=== PATIENT | male | born 1970 | race Two or more races ===

== ENCOUNTER 2021-05-27 22:39 | Emergency (ER) | payer OTHER ==
[~2021-05-27] VITALS: Ht 175.3 cm; Wt 90.9 kg
[2021-05-27 22:43] VITALS: BP 144/78
== END 2021-05-27 23:32 | disposition home or self-care (01) ==
LOC: ER 22:40
DX: F41.9 Anxiety disorder, unspecified (principal); R20.2 Paresthesia of skin
CPT/HCPCS: 93005; 99283

== ENCOUNTER 2021-07-18 20:27 | Emergency (ER) | payer BC ==
[~2021-07-18] VITALS: Ht 175.3 cm; Wt 90.9 kg
--- NOTE | 2021-07-18 20:51 | NUR ---
SPOKE TO DR YAN CONCERNING PT'S SYMPTOMS AND THEIR TIMING. HE WILL ASSESS PT PRIOR TO ORDERING HEAD CT.
[2021-07-18 20:59] LABS: BASOPHILS # (AUTO) 0.1 X10'3 (0-0.2); BASOPHILS % (AUTO) 0.8 % (0-1); EOSINOPHILS # (AUTO) 0.3 X10'3 (0-0.9); EOSINOPHILS % (AUTO) 3.6 % (0-6); HEMATOCRIT 45.2 % (42.0-52.0); HEMOGLOBIN 15.6 g/dl (14.0-17.9); LYMPHOCYTES # (AUTO) 2.2 X10'3 (1.1-4.8); LYMPHOCYTES % (AUTO) 28.2 % (21-51); MEAN CORPUSCULAR HEMOGLOBIN 30.4 PG (27.0-31.0); MEAN CORPUSCULAR HGB CONC 34.5 g/dL (33.0-36.5); MONOCYTES # (AUTO) 0.6 X10'3 (0-0.9); MONOCYTES % (AUTO) 7.9 % (2-12); NEUTROPHILS # (AUTO) 4.7 X10'3 (1.8-7.7); NEUTROPHILS % (AUTO) 59.5 % (42-75); PLATELET COUNT 295 X10'3 (140-440); RED BLOOD COUNT 5.14 X10'6 (4.70-6.10); RED CELL DISTRIBUTION WIDTH 13.5 % (11.5-14.5); WHITE BLOOD COUNT 7.8 X10'3 (4.5-11.0)
[2021-07-18 21:04] LABS: ALANINE AMINOTRANSFERASE 36 U/L (12-78); ALBUMIN/GLOBULIN RATIO 1.1 (1.1-1.5); ALKALINE PHOSPHATASE 74 IU/L (46-116); ANION GAP 7 (8-16); ASPARTATE AMINO TRANSFERASE 18 U/L (10-37); BILIRUBIN,TOTAL 0.6 MG/DL (0.1-1.0); BLOOD UREA NITROGEN 22 MG/DL (7-18); CALCIUM 8.9 MG/DL (8.5-10.1); CHLORIDE 105 MMOL/L (99-107); GLUCOSE 110 MG/DL (70-104); POTASSIUM 3.7 MMOL/L (3.5-5.1); SODIUM 139 MMOL/L (135-145); TOTAL CARBON DIOXIDE 27.3 MMOL/L (24-32); TOTAL PROTEIN 7.8 G/DL (6.4-8.2); eGFR 79 ML/MIN
[2021-07-18 23:42] VITALS: BP 125/86
== END 2021-07-19 00:05 | disposition home or self-care (01) ==
LOC: ER 20:27
DX: E87.8 Other disorders of electrolyte and fluid balance, not elsewhere classified (principal); R20.2 Paresthesia of skin; R07.89 Other chest pain; F41.9 Anxiety disorder, unspecified; F17.200 Nicotine dependence, unspecified, uncomplicated
CPT/HCPCS: 36415; 71045; 80053; 83880; 84443; 84484; 85025; 93005; 99285

== ENCOUNTER 2021-07-31 22:00 | Emergency (ER) | payer BC | END 2021-07-31 22:52 | disposition left against medical advice (07) | LOC: ER 22:00 | DX: J11.1 Influenza due to unidentified influenza virus with other respiratory manifestations (principal); Z53.21 Procedure and treatment not carried out due to patient leaving prior to being seen by health care provider ==

== ENCOUNTER 2021-09-06 20:52 | Emergency (ER) | payer BC ==
[~2021-09-06] VITALS: Ht 175.3 cm; Wt 84.1 kg
[2021-09-06 21:07] VITALS: BP 109/74
--- NOTE | 2021-09-07 02:00 | NUR ---
SECOND CALL, NOT IN LOBBY
== END 2021-09-07 02:29 | disposition left against medical advice (07) ==
LOC: ER 20:53
DX: R42 Dizziness and giddiness (principal); Z53.21 Procedure and treatment not carried out due to patient leaving prior to being seen by health care provider
CPT/HCPCS: 93005

== ENCOUNTER 2021-10-11 11:13 | Emergency (ER) | payer BC ==
[~2021-10-11] VITALS: Ht 175.3 cm; Wt 81.8 kg
[2021-10-11 11:20] VITALS: BP 114/58
== END 2021-10-11 12:41 | disposition home or self-care (01) ==
LOC: ER 11:14
DX: R51.9 Headache, unspecified (principal)
CPT/HCPCS: 99281

== ENCOUNTER 2022-03-23 23:47 | Emergency (ER) | payer BC ==
[~2022-03-23] VITALS: Ht 175.3 cm; Wt 81.5 kg
[2022-03-24 00:08] LABS: BASOPHILS # (AUTO) 0.1 X10'3 (0-0.2); EOSINOPHILS # (AUTO) 0.3 X10'3 (0-0.9); EOSINOPHILS % (AUTO) 5.3 % (0-6); HEMATOCRIT 42.9 % (42.0-52.0); LYMPHOCYTES # (AUTO) 1.9 X10'3 (1.1-4.8); LYMPHOCYTES % (AUTO) 31.3 % (21-51); MEAN CORPUSCULAR HEMOGLOBIN 31.1 PG (27.0-31.0); MEAN CORPUSCULAR HGB CONC 34.9 g/dL (33.0-36.5); MEAN PLATELET VOLUME 8.6 FL (7.4-10.4); MONOCYTES # (AUTO) 0.5 X10'3 (0-0.9); MONOCYTES % (AUTO) 8.5 % (2-12); NEUTROPHILS # (AUTO) 3.2 X10'3 (1.8-7.7); NEUTROPHILS % (AUTO) 53.9 % (42-75); PLATELET COUNT 271 X10'3 (140-440); RED BLOOD COUNT 4.82 X10'6 (4.70-6.10); RED CELL DISTRIBUTION WIDTH 13.8 % (11.5-14.5); WHITE BLOOD COUNT 5.9 X10'3 (4.5-11.0)
[2022-03-24 00:26] LABS: ALANINE AMINOTRANSFERASE 34 U/L (12-78); ALBUMIN 3.9 G/DL (3.4-5.0); ALBUMIN/GLOBULIN RATIO 1.1 (1.1-1.5); ALKALINE PHOSPHATASE 69 IU/L (46-116); ANION GAP 10 (8-16); ASPARTATE AMINO TRANSFERASE 18 U/L (10-37); BILIRUBIN,TOTAL 0.4 MG/DL (0.1-1.0); BLOOD UREA NITROGEN 20 MG/DL (7-18); BUN/CREATININE RATIO 18.2 (5.4-32.0); CALCIUM 8.9 MG/DL (8.5-10.1); CHLORIDE 104 MMOL/L (99-107); GLUCOSE 117 MG/DL (70-104); MAGNESIUM 2.1 MG/DL (1.5-2.4); POTASSIUM 3.6 MMOL/L (3.5-5.1); SODIUM 138 MMOL/L (135-145); TOTAL CARBON DIOXIDE 24.3 MMOL/L (24-32); TOTAL PROTEIN 7.4 G/DL (6.4-8.2); eGFR 70 ML/MIN
[2022-03-24 02:11] VITALS: BP 124/67
== END 2022-03-24 02:12 | disposition home or self-care (01) ==
LOC: ER 23:47
DX: R07.9 Chest pain, unspecified (principal); F41.9 Anxiety disorder, unspecified; F17.200 Nicotine dependence, unspecified, uncomplicated; G47.30 Sleep apnea, unspecified; Z88.0 Allergy status to penicillin
CPT/HCPCS: 36415; 71045; 80053; 83735; 83880; 84484; 85025; 93005; 99285

== ENCOUNTER 2022-03-27 18:21 | Emergency (ER) | payer BC ==
[~2022-03-27] VITALS: Ht 175.3 cm; Wt 87.2 kg
[2022-03-27 19:10] LABS: BASOPHILS # (AUTO) 0.1 X10'3 (0-0.2); BASOPHILS % (AUTO) 1.2 % (0-1); EOSINOPHILS # (AUTO) 0.2 X10'3 (0-0.9); EOSINOPHILS % (AUTO) 3.4 % (0-6); HEMATOCRIT 43.8 % (42.0-52.0); LYMPHOCYTES # (AUTO) 0.8 X10'3 (1.1-4.8); LYMPHOCYTES % (AUTO) 13.8 % (21-51); MEAN CORPUSCULAR HEMOGLOBIN 30.5 PG (27.0-31.0); MEAN CORPUSCULAR HGB CONC 34.1 g/dL (33.0-36.5); MEAN CORPUSCULAR VOLUME 89.5 FL (78-98); MEAN PLATELET VOLUME 8.7 FL (7.4-10.4); MONOCYTES # (AUTO) 0.6 X10'3 (0-0.9); MONOCYTES % (AUTO) 9.7 % (2-12); NEUTROPHILS # (AUTO) 4.2 X10'3 (1.8-7.7); NEUTROPHILS % (AUTO) 71.9 % (42-75); PLATELET COUNT 255 X10'3 (140-440); RED CELL DISTRIBUTION WIDTH 13.4 % (11.5-14.5); WHITE BLOOD COUNT 5.9 X10'3 (4.5-11.0)
[2022-03-27 19:22] LABS: ALANINE AMINOTRANSFERASE 27 U/L (12-78); ALBUMIN 3.9 G/DL (3.4-5.0); ALBUMIN/GLOBULIN RATIO 1.1 (1.1-1.5); ALKALINE PHOSPHATASE 72 IU/L (46-116); ANION GAP 9 (8-16); ASPARTATE AMINO TRANSFERASE 18 U/L (10-37); BILIRUBIN,TOTAL 0.3 MG/DL (0.1-1.0); BLOOD UREA NITROGEN 23 MG/DL (7-18); BUN/CREATININE RATIO 22.1 (5.4-32.0); CALCIUM 9.1 MG/DL (8.5-10.1); CHLORIDE 103 MMOL/L (99-107); CREATININE 1.04 MG/DL (0.60-1.10); GLUCOSE 107 MG/DL (70-104); POTASSIUM 3.9 MMOL/L (3.5-5.1); SODIUM 138 MMOL/L (135-145); TOTAL PROTEIN 7.5 G/DL (6.4-8.2); eGFR 75 ML/MIN
[2022-03-28 01:43] VITALS: BP 143/76
== END 2022-03-28 01:47 | disposition home or self-care (01) ==
LOC: ER 18:22
DX: R05.9 Cough, unspecified (principal); R09.81 Nasal congestion; M54.59 Other low back pain; R06.02 Shortness of breath; F41.9 Anxiety disorder, unspecified; Z88.0 Allergy status to penicillin
CPT/HCPCS: 36415; 80053; 83735; 83880; 84484; 85025; 93005; 99284

== ENCOUNTER 2022-08-20 09:02 | Emergency (ER) | payer BC, MEDICAID ==
[~2022-08-20] VITALS: Ht 175.3 cm; Wt 84.1 kg
[2022-08-20 09:08] VITALS: BP 127/83
[2022-08-20 09:31] LABS: BASOPHILS # (AUTO) 0.1 X10'3 (0-0.2); BASOPHILS % (AUTO) 1.1 % (0-1); EOSINOPHILS # (AUTO) 0.2 X10'3 (0-0.9); EOSINOPHILS % (AUTO) 2.8 % (0-6); HEMATOCRIT 46.6 % (42.0-52.0); LYMPHOCYTES # (AUTO) 1.8 X10'3 (1.1-4.8); LYMPHOCYTES % (AUTO) 25.4 % (21-51); MEAN CORPUSCULAR HEMOGLOBIN 30.6 PG (27.0-31.0); MEAN CORPUSCULAR HGB CONC 34.3 g/dL (33.0-36.5); MEAN PLATELET VOLUME 8.6 FL (7.4-10.4); MONOCYTES # (AUTO) 0.5 X10'3 (0-0.9); MONOCYTES % (AUTO) 6.5 % (2-12); NEUTROPHILS # (AUTO) 4.5 X10'3 (1.8-7.7); NEUTROPHILS % (AUTO) 64.2 % (42-75); PLATELET COUNT 299 X10'3 (140-440); RED BLOOD COUNT 5.24 X10'6 (4.70-6.10); RED CELL DISTRIBUTION WIDTH 13.1 % (11.5-14.5)
[2022-08-20 09:44] LABS: ALANINE AMINOTRANSFERASE 37 U/L (12-78); ALBUMIN 4.1 G/DL (3.4-5.0); ALBUMIN/GLOBULIN RATIO 1.1 (1.1-1.5); ALKALINE PHOSPHATASE 77 IU/L (46-116); ANION GAP 2 (8-16); ASPARTATE AMINO TRANSFERASE 20 U/L (10-37); BILIRUBIN,TOTAL 0.4 MG/DL (0.1-1.0); BLOOD UREA NITROGEN 28 MG/DL (7-18); BUN/CREATININE RATIO 32.9 (10.0-20.0); CALCIUM 9.2 MG/DL (8.5-10.1); CHLORIDE 105 MMOL/L (99-107); CREATININE 0.85 MG/DL (0.60-1.10); GLUCOSE 109 MG/DL (70-104); POTASSIUM 3.7 MMOL/L (3.5-5.1); SODIUM 137 MMOL/L (135-145); TOTAL CARBON DIOXIDE 29.9 MMOL/L (24-32); TOTAL PROTEIN 7.8 G/DL (6.4-8.2); eGFR > 90 ML/MIN
[2022-08-20] MEDS ORDERED: LANS30CA37 PO (12:51)
== END 2022-08-20 13:00 | disposition home or self-care (01) ==
LOC: ER 09:02
DX: K29.70 Gastritis, unspecified, without bleeding (principal); E78.00 Pure hypercholesterolemia, unspecified; I10 Essential (primary) hypertension; I25.2 Old myocardial infarction; E11.9 Type 2 diabetes mellitus without complications; F41.9 Anxiety disorder, unspecified; F17.200 Nicotine dependence, unspecified, uncomplicated; Z88.0 Allergy status to penicillin; Z79.899 Other long term (current) drug therapy
CPT/HCPCS: 36415; 71045; 80053; 83880; 84484; 85025; 93005; 99285

== ENCOUNTER 2022-10-21 18:52 | Emergency (ER) | payer MEDICAID ==
[~2022-10-21] VITALS: Ht 175.3 cm; Wt 85.5 kg
[~2022-10-21 18:52] MED LIST: LANS30CA37 PO
[2022-10-21 19:12] VITALS: BP 138/84; PULSE 94; TEMP 98.8; O2SAT 96
[2022-10-21 19:22] LABS: BASOPHILS # (AUTO) 0.1 X10'3 (0-0.2); BASOPHILS % (AUTO) 0.8 % (0-1); EOSINOPHILS # (AUTO) 0.2 X10'3 (0-0.9); EOSINOPHILS % (AUTO) 2.1 % (0-6); HEMATOCRIT 43.8 % (42.0-52.0); HEMOGLOBIN 15.5 g/dl (14.0-17.9); LYMPHOCYTES # (AUTO) 1.7 X10'3 (1.1-4.8); LYMPHOCYTES % (AUTO) 18.9 % (21-51); MEAN CORPUSCULAR HEMOGLOBIN 31.7 PG (27.0-31.0); MEAN CORPUSCULAR HGB CONC 35.4 g/dL (33.0-36.5); MEAN CORPUSCULAR VOLUME 89.5 FL (78-98); MONOCYTES # (AUTO) 0.6 X10'3 (0-0.9); MONOCYTES % (AUTO) 6.2 % (2-12); NEUTROPHILS # (AUTO) 6.5 X10'3 (1.8-7.7); PLATELET COUNT 284 X10'3 (140-440); RED CELL DISTRIBUTION WIDTH 13.3 % (11.5-14.5)
[2022-10-21 19:41] LABS: ALANINE AMINOTRANSFERASE 33 U/L (12-78); ALBUMIN 3.9 G/DL (3.4-5.0); ALBUMIN/GLOBULIN RATIO 1.1 (1.1-1.5); ALKALINE PHOSPHATASE 81 IU/L (46-116); ANION GAP 11 (8-16); ASPARTATE AMINO TRANSFERASE 18 U/L (10-37); BILIRUBIN,TOTAL 0.3 MG/DL (0.1-1.0); BLOOD UREA NITROGEN 22 MG/DL (7-18); BUN/CREATININE RATIO 24.4 (10.0-20.0); CALCIUM 9.1 MG/DL (8.5-10.1); CHLORIDE 104 MMOL/L (99-107); GLUCOSE 114 MG/DL (70-104); POTASSIUM 3.7 MMOL/L (3.5-5.1); SODIUM 140 MMOL/L (135-145); TOTAL CARBON DIOXIDE 25.5 MMOL/L (24-32); TOTAL PROTEIN 7.4 G/DL (6.4-8.2); eGFR 88 ML/MIN
[2022-10-22 02:51] VITALS: RESP 18
[2022-10-22] MEDS ORDERED: LANS30CA37 PO ×2 (03:16→03:17)
== END 2022-10-22 03:29 | disposition home or self-care (01) ==
LOC: ER 18:53
DX: R07.89 Other chest pain (principal); M54.9 Dorsalgia, unspecified; E78.00 Pure hypercholesterolemia, unspecified; I10 Essential (primary) hypertension; I25.2 Old myocardial infarction; E11.9 Type 2 diabetes mellitus without complications; Z88.0 Allergy status to penicillin; Z79.899 Other long term (current) drug therapy; Z87.19 Personal history of other diseases of the digestive system
CPT/HCPCS: 36415; 71045; 80053; 83880; 84484; 85025; 93005; 99285

== ENCOUNTER 2023-01-22 19:10 | Inpatient (IN) | payer MEDICAID ==
[~2023-01-22] VITALS: Ht 175.3 cm; Wt 83.0 kg
[2023-01-22 19:30] VITALS: TEMP 98.1
[2023-01-22 20:11] LABS: BASOPHILS # (AUTO) 0.1 X10'3 (0-0.2); EOSINOPHILS # (AUTO) 0.2 X10'3 (0-0.9); EOSINOPHILS % (AUTO) 3.1 % (0-6); HEMATOCRIT 44.2 % (42.0-52.0); HEMOGLOBIN 15.4 g/dl (14.0-17.9); LYMPHOCYTES # (AUTO) 1.9 X10'3 (1.1-4.8); LYMPHOCYTES % (AUTO) 24.3 % (21-51); MEAN CORPUSCULAR HEMOGLOBIN 31.3 PG (27.0-31.0); MEAN CORPUSCULAR HGB CONC 34.9 g/dL (33.0-36.5); MEAN CORPUSCULAR VOLUME 89.5 FL (78-98); MEAN PLATELET VOLUME 9.3 FL (7.4-10.4); MONOCYTES # (AUTO) 0.6 X10'3 (0-0.9); MONOCYTES % (AUTO) 8.1 % (2-12); NEUTROPHILS # (AUTO) 4.9 X10'3 (1.8-7.7); NEUTROPHILS % (AUTO) 63.5 % (42-75); PLATELET COUNT 279 X10'3 (140-440); RED BLOOD COUNT 4.94 X10'6 (4.70-6.10); RED CELL DISTRIBUTION WIDTH 12.9 % (11.5-14.5); WHITE BLOOD COUNT 7.7 X10'3 (4.5-11.0)
[2023-01-22 20:12] LABS: ALANINE AMINOTRANSFERASE 26 U/L (12-78); ALBUMIN/GLOBULIN RATIO 1.3 (1.1-1.5); ALKALINE PHOSPHATASE 77 IU/L (46-116); ANION GAP 7 (8-16); ASPARTATE AMINO TRANSFERASE 17 U/L (10-37); BILIRUBIN,TOTAL 0.3 MG/DL (0.1-1.0); BLOOD UREA NITROGEN 18 MG/DL (7-18); BUN/CREATININE RATIO 20.9 (10.0-20.0); CALCIUM 9.5 MG/DL (8.5-10.1); CHLORIDE 102 MMOL/L (99-107); CREATININE 0.86 MG/DL (0.60-1.10); GLUCOSE 109 MG/DL (70-104); POTASSIUM 3.8 MMOL/L (3.5-5.1); SODIUM 137 MMOL/L (135-145); TOTAL CARBON DIOXIDE 28.3 MMOL/L (24-32); TOTAL PROTEIN 7.1 G/DL (6.4-8.2); eCRCL 99 ML/MIN; eGFR > 90 ML/MIN
[2023-01-23] VITALS (11 sets, daily range): BP systolic 106–121; BP diastolic 60–72; PULSE 75–123; RESP 14–22; O2SAT 96–98
[2023-01-23] MEDS ORDERED: nitroGLYCERIN 1gm ointment UD TP ONE (00:55)
[2023-01-23] MEDS ORDERED: aspirin 325mg tablet, delayed-release (Ecotrin) PO ONE (00:55)
[2023-01-23 01:25] LABS: D-DIMER < 0.19 MG/L FEU (0-0.50)
[2023-01-23] MEDS ORDERED: acetaminophen 325mg tablet PO PRN ×2 (02:15)
[2023-01-23] MEDS ORDERED: magnesium 2GM in 50ml NS 50 ML IV PRN (02:15)
[2023-01-23] MEDS ORDERED: magnesium Cl slow-release 64mg tablet PO PRN (02:15)
[2023-01-23] MEDS ORDERED: potassium Cl 40MEQ/1/2NS 520ml 520 ML IV PRN (02:15)
[2023-01-23] MEDS ORDERED: potassium Cl 20 mEq SR tablet PO PRN ×2 (02:15)
[2023-01-23] MEDS ORDERED: magnesium hydroxide 30ml (MOM) UD suspension PO PRN (02:15)
[2023-01-23] MEDS ORDERED: HYDROcodone/acetaminophen 10/325mg tab PO PRN (02:15)
[2023-01-23] MEDS ORDERED: ondansetron/PF 4mg/2ml inj IV PRN (02:15)
[2023-01-23] MEDS ORDERED: mag hydrox/Alum hydrox/simeth 30ml oral suspension PO PRN (02:15)
[2023-01-23] MEDS ORDERED: magnesium 4gm in 100ml NS 100 ML IV PRN (02:15)
[2023-01-23] MEDS ORDERED: morphine 2 MG/ML inj. syringe IV PRN ×2 (02:15)
[2023-01-23] MEDS ORDERED: HYDROcodone/acetaminophen 5mg/325mg tablet PO PRN (02:15)
[2023-01-23 02:58] LABS: URINE AMPHETAMINE SCREEN NEGATIVE (Neg); URINE BARBITUATE SCREEN NEGATIVE (Neg); URINE BENZODIAZEPINES SCREEN POSITIVE (Neg); URINE CANNABINOID SCREEN NEGATIVE (Neg); URINE COCAINE SCREEN NEGATIVE (Neg); URINE METHADONE SCREEN NEGATIVE (Neg); URINE OPIATE SCREEN NEGATIVE (Neg); URINE PHENCYCLIDINE SCREEN NEGATIVE (Neg)
[2023-01-23] MEDS: normal saline 1000ml 1,000 ML IV SCH ×2 (03:10→13:26)
[2023-01-23] MEDS ORDERED: ALPR-624 PO (06:39)
[2023-01-23] MEDS ORDERED: SERT100T PO (06:39)
[2023-01-23] MEDS ORDERED: GEMF600T89 PO (06:39)
--- NOTE | 2023-01-23 07:00 | NUR ---
ASSUMED PT CARE. PT AWAKE AND RESTING IN NO APPARENT DISTRESS. NITRO PATCH DISCONTINUED, PT HAS A STRESS TEST THIS MORNING.
[2023-01-23] MEDS ORDERED: docusate sod 100mg capsule PO SCH (08:00)
[2023-01-23] MEDS ORDERED: enoxaparin 40mg/0.4ml syringe SUBCUT SCH (08:00)
--- NOTE | 2023-01-23 08:44 | NUR ---
ECHO AT BEDSIDE
[2023-01-23] MEDS ORDERED: regadenoson 0.4mg/5ml syringe IV ONE (10:25)
[2023-01-23] MEDS ORDERED: aminophylline 250mg/10ml inj. IV PRN (10:25)
[2023-01-23 10:41] LABS: HEMOGLOBIN A1C 5.7 % (4.5-6.2)
[2023-01-23 10:46] LABS: CHOLESTEROL 169 MG/DL (0-200); HDL CHOLESTEROL 34 MG/DL (35-60); LDL CHOLESTEROL 101 MG/DL (50-100); THYROID STIMULATING HORMONE 1.59 ulU/ml (0.34-4.50); TRIGLYCERIDES 138 MG/DL (20-135)
[2023-01-23] MEDS ORDERED: NICO-687 TOP (12:31)
--- NOTE | 2023-01-23 13:26 | NUR ---
pt back from stress test. pt tolerated well.
[2023-01-23] MEDS ORDERED: temazepam 15mg capsule PO PRN (21:00)
== END 2023-01-23 14:51 | disposition home or self-care (01) | DRG 243 ==
LOC: ER 19:11 → OBSVTOIN 01-23 02:13 → ED HOLD 01-23 02:13
PROVIDERS: ADMIT Internal Medicine; ATTEND Family Medicine
PROC: 4A02XM4 Measurement of Cardiac Total Activity, External Approach (ICD-10-PCS; principal; 2023-01-23)
PROC: 3E033HZ Introduction of Radioactive Substance into Peripheral Vein, Percutaneous Approach (ICD-10-PCS; 2023-01-23)
DX: K21.9 Gastro-esophageal reflux disease without esophagitis (principal); E78.00 Pure hypercholesterolemia, unspecified; F32.A Depression, unspecified; F41.9 Anxiety disorder, unspecified; I10 Essential (primary) hypertension; Z63.4 Disappearance and death of family member; Z88.0 Allergy status to penicillin; Z72.0 Tobacco use; Z71.6 Tobacco abuse counseling
CPT/HCPCS: 36415; 71045; 78452; 80053; 80061; 80305; 83036; 83880; 84443; 84484; 85025; 85379; 93017; 93306; 99285; A9500; G0378; J1650; J2785; J7030

== ENCOUNTER 2023-09-03 20:40 | Emergency (ER) | payer MEDICAID, SELFPAY ==
[~2023-09-03] VITALS: Ht 175.3 cm; Wt 80.0 kg
[~2023-09-03 20:40] MED LIST changes: +ALPR-624 PO; +GEMF600T89 PO; -LANS30CA37 PO; +SERT100T PO
[2023-09-03 20:48] VITALS: TEMP 98.7
[2023-09-03 21:05] LABS: BASOPHILS % (AUTO) 0.5 % (0-1); EOSINOPHILS # (AUTO) 0.2 X10'3 (0-0.9); EOSINOPHILS % (AUTO) 3.2 % (0-6); HEMATOCRIT 46.2 % (42.0-52.0); LYMPHOCYTES % (AUTO) 27.5 % (21-51); MEAN CORPUSCULAR HEMOGLOBIN 31.2 PG (27.0-31.0); MEAN CORPUSCULAR HGB CONC 34.6 g/dL (33.0-36.5); MEAN CORPUSCULAR VOLUME 90.2 FL (78-98); MEAN PLATELET VOLUME 8.8 FL (7.4-10.4); MONOCYTES # (AUTO) 0.5 X10'3 (0-0.9); NEUTROPHILS # (AUTO) 4.4 X10'3 (1.8-7.7); NEUTROPHILS % (AUTO) 61.8 % (42-75); PLATELET COUNT 271 X10'3 (140-440); RED BLOOD COUNT 5.13 X10'6 (4.70-6.10); RED CELL DISTRIBUTION WIDTH 14.4 % (11.5-14.5); WHITE BLOOD COUNT 7.1 X10'3 (4.5-11.0)
[2023-09-03 21:13] LABS: ALANINE AMINOTRANSFERASE 22 U/L (12-78); ALBUMIN 3.5 G/DL (3.4-5.0); ALBUMIN/GLOBULIN RATIO 0.9 (1.1-1.5); ALKALINE PHOSPHATASE 65 IU/L (46-116); ANION GAP 8 (8-16); ASPARTATE AMINO TRANSFERASE 11 U/L (10-37); BILIRUBIN,TOTAL 0.4 MG/DL (0.1-1.0); BLOOD UREA NITROGEN 19 MG/DL (7-18); BUN/CREATININE RATIO 20.2 (10.0-20.0); CALCIUM 9.3 MG/DL (8.5-10.1); CHLORIDE 104 MMOL/L (99-107); CREATININE 0.94 MG/DL (0.60-1.10); GLUCOSE 100 MG/DL (70-104); POTASSIUM 3.8 MMOL/L (3.5-5.1); SODIUM 141 MMOL/L (135-145); TOTAL CARBON DIOXIDE 28.6 MMOL/L (24-32); TOTAL PROTEIN 7.5 G/DL (6.4-8.2); eCRCL 91 ML/MIN; eGFR 84 ML/MIN
[2023-09-03 21:23] LABS: FREE T4 (FREE THYROXINE) 0.82 NG/DL (0.73-1.40); PRO BRAIN NATRIURETIC PEPTIDE < 30 PG/ML (0-125); THYROID STIMULATING HORMONE 2.49 ulU/ml (0.34-4.50)
[2023-09-03 22:00] LABS: BILIRUBIN,URINE NEGATIVE (Neg); CLARITY,URINE CLEAR (Clear); COLOR,URINE YELLOW (Yellow); GLUCOSE, URINE NEGATIVE (Neg); KETONES,URINE NEGATIVE (Neg); LEUKOCYTE ESTERASE ,URINE NEGATIVE (Neg); NITRITES, URINE NEGATIVE (Neg); OCCULT BLOOD,URINE NEGATIVE (Neg); PROTEIN,URINE NEGATIVE (Neg); UROBILINOGEN,URINE 0.2 E.U/dL (0.2-1.0)
[2023-09-03 22:05] LABS: UA COLLECTION TYPE NON-SPECIFIED
[2023-09-03 22:11] LABS: URINE AMPHETAMINE SCREEN NEGATIVE (Neg); URINE BARBITUATE SCREEN NEGATIVE (Neg); URINE BENZODIAZEPINES SCREEN POSITIVE (Neg); URINE CANNABINOID SCREEN NEGATIVE (Neg); URINE COCAINE SCREEN NEGATIVE (Neg); URINE METHADONE SCREEN NEGATIVE (Neg); URINE OPIATE SCREEN NEGATIVE (Neg); URINE PHENCYCLIDINE SCREEN NEGATIVE (Neg)
[2023-09-03 22:44] LABS: APTT 26 SECONDS (22-32); INR 0.9 INR; PROTHROMBIN TIME 10.2 SECONDS (9.0-12.0)
[2023-09-03 23:19] VITALS: BP 115/70; PULSE 83; RESP 15; O2SAT 94
== END 2023-09-03 23:20 | disposition home or self-care (01) ==
LOC: ER 20:40
DX: R07.9 Chest pain, unspecified (principal); E78.00 Pure hypercholesterolemia, unspecified; I10 Essential (primary) hypertension; F41.9 Anxiety disorder, unspecified; Z79.899 Other long term (current) drug therapy; Z88.0 Allergy status to penicillin
CPT/HCPCS: 36415; 71045; 80053; 80305; 81003; 83880; 84439; 84443; 84484; 85025; 85610; 85730; 93005; 99285

== ENCOUNTER 2023-10-22 12:06 | Emergency (ER) | payer MEDICAID ==
[~2023-10-22] VITALS: Ht 175.3 cm; Wt 77.3 kg
[2023-10-22 12:19] VITALS: TEMP 98
[2023-10-22 12:34] LABS: BASOPHILS % (AUTO) 0.8 % (0-1); EOSINOPHILS # (AUTO) 0.2 X10'3 (0-0.9); EOSINOPHILS % (AUTO) 2.8 % (0-6); HEMATOCRIT 53.8 % (42.0-52.0); LYMPHOCYTES # (AUTO) 1.3 X10'3 (1.1-4.8); LYMPHOCYTES % (AUTO) 23.7 % (21-51); MEAN CORPUSCULAR HEMOGLOBIN 31.5 PG (27.0-31.0); MEAN CORPUSCULAR HGB CONC 34.5 g/dL (33.0-36.5); MEAN CORPUSCULAR VOLUME 91.5 FL (78-98); MEAN PLATELET VOLUME 8.9 FL (7.4-10.4); MONOCYTES # (AUTO) 0.4 X10'3 (0-0.9); MONOCYTES % (AUTO) 7.1 % (2-12); NEUTROPHILS # (AUTO) 3.6 X10'3 (1.8-7.7); NEUTROPHILS % (AUTO) 65.6 % (42-75); PLATELET COUNT 261 X10'3 (140-440); RED BLOOD COUNT 5.88 X10'6 (4.70-6.10); RED CELL DISTRIBUTION WIDTH 13.8 % (11.5-14.5); WHITE BLOOD COUNT 5.5 X10'3 (4.5-11.0)
[2023-10-22 12:39] LABS: HEMOGLOBIN 18.6 g/dl (14.0-17.9)
[2023-10-22 12:49] LABS: ALANINE AMINOTRANSFERASE 17 U/L (12-78); ALBUMIN 4.1 G/DL (3.4-5.0); ALKALINE PHOSPHATASE 73 IU/L (46-116); ANION GAP 7 (8-16); ASPARTATE AMINO TRANSFERASE 17 U/L (10-37); BILIRUBIN,TOTAL 0.8 MG/DL (0.1-1.0); BLOOD UREA NITROGEN 14 MG/DL (7-18); BUN/CREATININE RATIO 17.3 (10.0-20.0); CALCIUM 9.3 MG/DL (8.5-10.1); CHLORIDE 103 MMOL/L (99-107); CREATININE 0.81 MG/DL (0.60-1.10); GLUCOSE 103 MG/DL (70-104); POTASSIUM 3.9 MMOL/L (3.5-5.1); SODIUM 139 MMOL/L (135-145); TOTAL CARBON DIOXIDE 28.8 MMOL/L (24-32); TOTAL PROTEIN 8.1 G/DL (6.4-8.2); eCRCL 104 ML/MIN; eGFR > 90 ML/MIN
[2023-10-22 12:57] LABS: PRO BRAIN NATRIURETIC PEPTIDE < 30 PG/ML (0-125)
[2023-10-22] MEDS: normal saline 1000ML IV soln IVB ONE (13:42)
[2023-10-22 15:45] LABS: HEMATOCRIT 49.2 % (42.0-52.0); HEMOGLOBIN 16.8 g/dl (14.0-17.9); MEAN CORPUSCULAR HEMOGLOBIN 31.5 PG (27.0-31.0); MEAN CORPUSCULAR HGB CONC 34.1 g/dL (33.0-36.5); MEAN CORPUSCULAR VOLUME 92.2 FL (78-98); PLATELET COUNT 228 X10'3 (140-440); RED BLOOD COUNT 5.34 X10'6 (4.70-6.10); RED CELL DISTRIBUTION WIDTH 13.9 % (11.5-14.5); WHITE BLOOD COUNT 5.9 X10'3 (4.5-11.0)
[2023-10-22 18:18] VITALS: BP 127/85; PULSE 69; RESP 22; O2SAT 98
== END 2023-10-22 18:20 | disposition home or self-care (01) ==
LOC: ER 12:07
DX: D75.1 Secondary polycythemia (principal); E78.00 Pure hypercholesterolemia, unspecified; I10 Essential (primary) hypertension; F41.9 Anxiety disorder, unspecified; F17.200 Nicotine dependence, unspecified, uncomplicated; Z88.0 Allergy status to penicillin; Z79.899 Other long term (current) drug therapy
CPT/HCPCS: 36415; 80053; 82668; 83880; 84484; 85025; 85027; 93005; 99285; J7030

== ENCOUNTER 2023-12-17 08:32 | Emergency (ER) | payer MEDICAID ==
[~2023-12-17] VITALS: Ht 172.7 cm; Wt 77.0 kg
[2023-12-17] MEDS: normal saline 1000ML IV soln IVB ONE (09:56)
[2023-12-17 10:06] LABS: BASOPHILS % (AUTO) 0.6 % (0-1); EOSINOPHILS # (AUTO) 0.1 X10'3 (0-0.9); HEMATOCRIT 47.3 % (42.0-52.0); HEMOGLOBIN 16.2 g/dl (14.0-17.9); LYMPHOCYTES # (AUTO) 1.3 X10'3 (1.1-4.8); LYMPHOCYTES % (AUTO) 18.2 % (21-51); MEAN CORPUSCULAR HEMOGLOBIN 31.5 PG (27.0-31.0); MEAN CORPUSCULAR HGB CONC 34.3 g/dL (33.0-36.5); MEAN CORPUSCULAR VOLUME 91.8 FL (78-98); MEAN PLATELET VOLUME 9.1 FL (7.4-10.4); MONOCYTES # (AUTO) 0.5 X10'3 (0-0.9); MONOCYTES % (AUTO) 6.4 % (2-12); NEUTROPHILS # (AUTO) 5.3 X10'3 (1.8-7.7); NEUTROPHILS % (AUTO) 72.8 % (42-75); PLATELET COUNT 240 X10'3 (140-440); RED BLOOD COUNT 5.15 X10'6 (4.70-6.10); WHITE BLOOD COUNT 7.3 X10'3 (4.5-11.0)
[2023-12-17 10:27] LABS: ALBUMIN 3.7 G/DL (3.4-5.0); ANION GAP 5 (8-16); BLOOD UREA NITROGEN 13 MG/DL (7-18); BUN/CREATININE RATIO 17.3 (10.0-20.0); CALCIUM 9.1 MG/DL (8.5-10.1); CHLORIDE 104 MMOL/L (99-107); CREATININE 0.75 MG/DL (0.60-1.10); GLUCOSE 99 MG/DL (70-104); POTASSIUM 4.2 MMOL/L (3.5-5.1); PRO BRAIN NATRIURETIC PEPTIDE 34 PG/ML (0-125); SODIUM 141 MMOL/L (135-145); TOTAL CARBON DIOXIDE 31.9 MMOL/L (24-32); eCRCL 109 ML/MIN; eGFR > 90 ML/MIN
[2023-12-17 11:53] VITALS: BP 133/68; PULSE 74; RESP 14; O2SAT 98
== END 2023-12-17 11:53 | disposition home or self-care (01) ==
LOC: ER 08:33
DX: F41.9 Anxiety disorder, unspecified (principal); R51.9 Headache, unspecified; E78.00 Pure hypercholesterolemia, unspecified; I10 Essential (primary) hypertension; G47.30 Sleep apnea, unspecified; Z88.0 Allergy status to penicillin; Z79.899 Other long term (current) drug therapy
CPT/HCPCS: 36415; 80048; 83880; 84484; 85025; 93005; 96360; 99284; J7030

== ENCOUNTER 2024-02-09 11:15 | Emergency (ER) | payer MEDICAID ==
[~2024-02-09] VITALS: Ht 172.7 cm; Wt 77.9 kg
[2024-02-09 12:41] LABS: BASOPHILS # (AUTO) 0.1 X10'3 (0-0.2); BASOPHILS % (AUTO) 1.1 % (0-1); EOSINOPHILS # (AUTO) 0.1 X10'3 (0-0.9); EOSINOPHILS % (AUTO) 2.5 % (0-6); HEMATOCRIT 44.1 % (42.0-52.0); HEMOGLOBIN 15.4 g/dl (14.0-17.9); LYMPHOCYTES # (AUTO) 1.4 X10'3 (1.1-4.8); LYMPHOCYTES % (AUTO) 26.9 % (21-51); MEAN CORPUSCULAR HEMOGLOBIN 31.6 PG (27.0-31.0); MEAN CORPUSCULAR HGB CONC 34.9 g/dL (33.0-36.5); MEAN CORPUSCULAR VOLUME 90.7 FL (78-98); MEAN PLATELET VOLUME 8.8 FL (7.4-10.4); MONOCYTES # (AUTO) 0.4 X10'3 (0-0.9); MONOCYTES % (AUTO) 7.4 % (2-12); NEUTROPHILS # (AUTO) 3.3 X10'3 (1.8-7.7); NEUTROPHILS % (AUTO) 62.1 % (42-75); PLATELET COUNT 263 X10'3 (140-440); RED BLOOD COUNT 4.86 X10'6 (4.70-6.10); RED CELL DISTRIBUTION WIDTH 13.4 % (11.5-14.5); WHITE BLOOD COUNT 5.3 X10'3 (4.5-11.0)
[2024-02-09 12:49] LABS: PROTHROMBIN TIME 10.4 SECONDS (9.0-12.0)
[2024-02-09 12:50] LABS: ALANINE AMINOTRANSFERASE 18 U/L (12-78); ALBUMIN 3.8 G/DL (3.4-5.0); ALKALINE PHOSPHATASE 70 IU/L (46-116); ANION GAP 6 (8-16); ASPARTATE AMINO TRANSFERASE 16 U/L (10-37); BILIRUBIN,TOTAL 0.7 MG/DL (0.1-1.0); BLOOD UREA NITROGEN 18 MG/DL (7-18); BUN/CREATININE RATIO 20.7 (10.0-20.0); CALCIUM 9.1 MG/DL (8.5-10.1); CHLORIDE 102 MMOL/L (99-107); CREATININE 0.87 MG/DL (0.60-1.10); GLUCOSE 94 MG/DL (70-104); POTASSIUM 4.3 MMOL/L (3.5-5.1); SODIUM 139 MMOL/L (135-145); TOTAL CARBON DIOXIDE 31.5 MMOL/L (24-32); TOTAL PROTEIN 7.7 G/DL (6.4-8.2); eCRCL 94 ML/MIN; eGFR > 90 ML/MIN
[2024-02-09 15:56] VITALS: BP 128/72; PULSE 64; RESP 14; TEMP 98.1; O2SAT 98
== END 2024-02-09 15:15 | disposition home or self-care (01) ==
LOC: ER 11:16
DX: K64.8 Other hemorrhoids (principal); K92.2 Gastrointestinal hemorrhage, unspecified; E78.00 Pure hypercholesterolemia, unspecified; I10 Essential (primary) hypertension; F41.9 Anxiety disorder, unspecified; Z88.0 Allergy status to penicillin; Z79.899 Other long term (current) drug therapy
CPT/HCPCS: 36415; 80053; 85025; 85610; 93005; 99285

== ENCOUNTER 2024-03-07 16:56 | Emergency (ER) | payer MEDICAID ==
[~2024-03-07] VITALS: Ht 172.7 cm; Wt 78.2 kg
[2024-03-07 16:57] VITALS: BP 117/71; TEMP 98
[2024-03-07] MEDS: ipratropium/albuterol 3ml nebule NEB ONE (17:27)
[2024-03-07 17:28] VITALS: PULSE 95; RESP 16; O2SAT 98
[2024-03-07] MEDS ORDERED: ACET1TAB96 PO (17:28)
[2024-03-07] MEDS ORDERED: PROM25TA14 PO (17:28)
[2024-03-07] MEDS ORDERED: AZIT250T PO (17:28)
[2024-03-07] MEDS ORDERED: PRED20TA PO (17:28)
[2024-03-07] MEDS ORDERED: ALBU8HFA INH (17:28)
[2024-03-07 17:34] VITALS: PULSE 99; RESP 16; O2SAT 98
== END 2024-03-07 18:15 | disposition home or self-care (01) ==
LOC: ER 16:56
DX: J20.9 Acute bronchitis, unspecified (principal); E78.00 Pure hypercholesterolemia, unspecified; I10 Essential (primary) hypertension; Z88.0 Allergy status to penicillin; Z79.899 Other long term (current) drug therapy; Z79.2 Long term (current) use of antibiotics; Z87.891 Personal history of nicotine dependence
CPT/HCPCS: 94640; 94760; 99283

== ENCOUNTER 2024-04-03 13:17 | Emergency (ER) | payer MEDICAID ==
[~2024-04-03] VITALS: Ht 172.7 cm; Wt 76.2 kg
[~2024-04-03 13:17] MED LIST changes: +ALBU8HFA INH; +AZIT250T PO
[2024-04-03 13:27] VITALS: BP 107/68; PULSE 113; RESP 16; TEMP 98; O2SAT 95
[2024-04-03 14:15] LABS: BASOPHILS # (AUTO) 0.1 X10'3 (0-0.2); BASOPHILS % (AUTO) 1.4 % (0-1); EOSINOPHILS # (AUTO) 0.2 X10'3 (0-0.9); EOSINOPHILS % (AUTO) 3.4 % (0-6); HEMATOCRIT 44.7 % (42.0-52.0); HEMOGLOBIN 15.6 g/dl (14.0-17.9); LYMPHOCYTES # (AUTO) 1.5 X10'3 (1.1-4.8); LYMPHOCYTES % (AUTO) 22.9 % (21-51); MEAN CORPUSCULAR HEMOGLOBIN 31.4 PG (27.0-31.0); MEAN CORPUSCULAR HGB CONC 34.9 g/dL (33.0-36.5); MEAN CORPUSCULAR VOLUME 89.8 FL (78-98); MEAN PLATELET VOLUME 8.5 FL (7.4-10.4); MONOCYTES # (AUTO) 0.3 X10'3 (0-0.9); NEUTROPHILS # (AUTO) 4.5 X10'3 (1.8-7.7); NEUTROPHILS % (AUTO) 67.3 % (42-75); PLATELET COUNT 269 X10'3 (140-440); RED BLOOD COUNT 4.97 X10'6 (4.70-6.10); RED CELL DISTRIBUTION WIDTH 12.7 % (11.5-14.5); WHITE BLOOD COUNT 6.6 X10'3 (4.5-11.0)
[2024-04-03 14:30] LABS: ALANINE AMINOTRANSFERASE 18 U/L (12-78); ALBUMIN 3.7 G/DL (3.4-5.0); ALBUMIN/GLOBULIN RATIO 0.9 (1.1-1.5); ALKALINE PHOSPHATASE 84 IU/L (46-116); ANION GAP 8 (8-16); ASPARTATE AMINO TRANSFERASE 13 U/L (10-37); BILIRUBIN,TOTAL 0.4 MG/DL (0.1-1.0); BLOOD UREA NITROGEN 17 MG/DL (7-18); BUN/CREATININE RATIO 23.9 (10.0-20.0); CHLORIDE 106 MMOL/L (99-107); CREATININE 0.71 MG/DL (0.60-1.10); GLUCOSE 112 MG/DL (70-104); POTASSIUM 3.9 MMOL/L (3.5-5.1); SODIUM 142 MMOL/L (135-145); TOTAL CARBON DIOXIDE 27.8 MMOL/L (24-32); TOTAL PROTEIN 7.6 G/DL (6.4-8.2); eCRCL 115 ML/MIN; eGFR > 90 ML/MIN
[2024-04-03 14:38] LABS: PRO BRAIN NATRIURETIC PEPTIDE 47 PG/ML (0-125)
== END 2024-04-03 16:43 | disposition home or self-care (01) ==
LOC: ER 13:18
DX: R07.9 Chest pain, unspecified (principal); E78.00 Pure hypercholesterolemia, unspecified; F41.9 Anxiety disorder, unspecified; I10 Essential (primary) hypertension; Z88.0 Allergy status to penicillin
CPT/HCPCS: 36415; 71045; 80053; 83880; 84484; 85025; 93005; 99285

== ENCOUNTER 2024-05-18 22:33 | Emergency (ER) | payer MEDICAID ==
[~2024-05-18] VITALS: Ht 172.7 cm; Wt 80.0 kg
[~2024-05-18 22:33] MED LIST changes: -ALBU8HFA INH
[2024-05-19 01:27] LABS: BASOPHILS % (AUTO) 0.7 % (0-1); EOSINOPHILS # (AUTO) 0.2 X10'3 (0-0.9); HEMATOCRIT 40.3 % (42.0-52.0); HEMOGLOBIN 14.1 g/dl (14.0-17.9); LYMPHOCYTES # (AUTO) 2.3 X10'3 (1.1-4.8); LYMPHOCYTES % (AUTO) 32.6 % (21-51); MEAN CORPUSCULAR HEMOGLOBIN 31.3 PG (27.0-31.0); MEAN CORPUSCULAR VOLUME 89.2 FL (78-98); MEAN PLATELET VOLUME 8.2 FL (7.4-10.4); MONOCYTES # (AUTO) 0.5 X10'3 (0-0.9); NEUTROPHILS % (AUTO) 56.7 % (42-75); PLATELET COUNT 288 X10'3 (140-440); RED BLOOD COUNT 4.52 X10'6 (4.70-6.10); RED CELL DISTRIBUTION WIDTH 13.3 % (11.5-14.5)
[2024-05-19 01:28] LABS: BILIRUBIN,URINE NEGATIVE (Neg); CLARITY,URINE CLEAR (Clear); COLOR,URINE YELLOW (Yellow); GLUCOSE, URINE NEGATIVE (Neg); KETONES,URINE NEGATIVE (Neg); LEUKOCYTE ESTERASE ,URINE NEGATIVE (Neg); NITRITES, URINE NEGATIVE (Neg); OCCULT BLOOD,URINE NEGATIVE (Neg); PROTEIN,URINE NEGATIVE (Neg); UROBILINOGEN,URINE 0.2 E.U/dL (0.2-1.0)
[2024-05-19 01:34] LABS: UA COLLECTION TYPE CLN CATCH MIDSTREAM
[2024-05-19 01:51] LABS: ALANINE AMINOTRANSFERASE 19 U/L (12-78); ALBUMIN 3.9 G/DL (3.4-5.0); ALBUMIN/GLOBULIN RATIO 1.1 (1.1-1.5); ALKALINE PHOSPHATASE 76 IU/L (46-116); ANION GAP 6 (8-16); ASPARTATE AMINO TRANSFERASE 17 U/L (10-37); BILIRUBIN,TOTAL 0.3 MG/DL (0.1-1.0); BLOOD UREA NITROGEN 22 MG/DL (7-18); BUN/CREATININE RATIO 28.9 (10.0-20.0); CALCIUM 9.1 MG/DL (8.5-10.1); CHLORIDE 105 MMOL/L (99-107); CREATININE 0.76 MG/DL (0.60-1.10); GLUCOSE 92 MG/DL (70-104); POTASSIUM 3.8 MMOL/L (3.5-5.1); SODIUM 141 MMOL/L (135-145); THYROID STIMULATING HORMONE 2.71 ulU/ml (0.34-4.50); TOTAL CARBON DIOXIDE 30.5 MMOL/L (24-32); TOTAL PROTEIN 7.5 G/DL (6.4-8.2); eCRCL 108 ML/MIN; eGFR > 90 ML/MIN
[2024-05-19 02:36] VITALS: BP 120/72; PULSE 70; RESP 18; TEMP 98.6; O2SAT 98
== END 2024-05-19 02:37 | disposition home or self-care (01) ==
LOC: ER 22:33
DX: R42 Dizziness and giddiness (principal); R10.9 Unspecified abdominal pain; R06.02 Shortness of breath; I10 Essential (primary) hypertension; E78.00 Pure hypercholesterolemia, unspecified; Z88.0 Allergy status to penicillin
CPT/HCPCS: 36415; 80053; 81003; 84443; 84484; 85025; 93005; 99284

== ENCOUNTER 2024-06-12 18:33 | Emergency (ER) | payer MEDICAID ==
[~2024-06-12] VITALS: Ht 172.7 cm; Wt 64.5 kg
[2024-06-12 18:35] VITALS: BP 128/77; PULSE 85; RESP 15; O2SAT 98
[2024-06-12] MEDS ORDERED: NICO-687 TOP (20:02)
[2024-06-12 20:12] VITALS: TEMP 96.8
== END 2024-06-12 20:13 | disposition home or self-care (01) ==
LOC: ER 18:34
DX: M94.0 Chondrocostal junction syndrome [Tietze] (principal); E78.00 Pure hypercholesterolemia, unspecified; I10 Essential (primary) hypertension; F41.9 Anxiety disorder, unspecified; F17.210 Nicotine dependence, cigarettes, uncomplicated; Z88.0 Allergy status to penicillin; Z79.899 Other long term (current) drug therapy
CPT/HCPCS: 71045; 99283

== ENCOUNTER 2024-06-19 22:33 | Emergency (ER) | payer MEDICAID ==
[~2024-06-19] VITALS: Ht 172.7 cm; Wt 78.4 kg
[~2024-06-19 22:33] MED LIST changes: +NICO-687 TOP
[2024-06-19 23:11] LABS: BASOPHILS # (AUTO) 0.1 X10'3 (0-0.2); BASOPHILS % (AUTO) 0.7 % (0-1); EOSINOPHILS # (AUTO) 0.2 X10'3 (0-0.9); EOSINOPHILS % (AUTO) 2.8 % (0-6); HEMOGLOBIN 14.3 g/dl (14.0-17.9); LYMPHOCYTES # (AUTO) 2.3 X10'3 (1.1-4.8); MEAN CORPUSCULAR HEMOGLOBIN 30.5 PG (27.0-31.0); MEAN CORPUSCULAR VOLUME 89.6 FL (78-98); MEAN PLATELET VOLUME 8.8 FL (7.4-10.4); MONOCYTES # (AUTO) 0.5 X10'3 (0-0.9); MONOCYTES % (AUTO) 6.6 % (2-12); NEUTROPHILS # (AUTO) 4.8 X10'3 (1.8-7.7); NEUTROPHILS % (AUTO) 60.9 % (42-75); PLATELET COUNT 280 X10'3 (140-440); RED BLOOD COUNT 4.68 X10'6 (4.70-6.10); RED CELL DISTRIBUTION WIDTH 13.4 % (11.5-14.5); WHITE BLOOD COUNT 7.9 X10'3 (4.5-11.0)
[2024-06-19 23:22] LABS: ALANINE AMINOTRANSFERASE 19 U/L (12-78); ALBUMIN 3.8 G/DL (3.4-5.0); ALBUMIN/GLOBULIN RATIO 1.2 (1.1-1.5); ALKALINE PHOSPHATASE 75 IU/L (46-116); ANION GAP 7 (8-16); ASPARTATE AMINO TRANSFERASE 14 U/L (10-37); BILIRUBIN,TOTAL 0.3 MG/DL (0.1-1.0); BLOOD UREA NITROGEN 22 MG/DL (7-18); BUN/CREATININE RATIO 26.8 (10.0-20.0); CHLORIDE 105 MMOL/L (99-107); CREATININE 0.82 MG/DL (0.60-1.10); GLUCOSE 87 MG/DL (70-104); POTASSIUM 3.7 MMOL/L (3.5-5.1); SODIUM 140 MMOL/L (135-145); TOTAL CARBON DIOXIDE 28.4 MMOL/L (24-32); eCRCL 100 ML/MIN; eGFR > 90 ML/MIN
[2024-06-19 23:30] LABS: PRO BRAIN NATRIURETIC PEPTIDE 34 PG/ML (0-125)
[2024-06-19 23:37] VITALS: TEMP 97.5
[2024-06-19 23:48] LABS: D-DIMER 0.31 MG/L FEU (0-0.50)
[2024-06-20 00:19] VITALS: BP 114/72; PULSE 71; RESP 12; O2SAT 96
== END 2024-06-20 00:22 | disposition home or self-care (01) ==
LOC: ER 22:34
DX: R07.89 Other chest pain (principal); I10 Essential (primary) hypertension; E78.00 Pure hypercholesterolemia, unspecified; F41.9 Anxiety disorder, unspecified; R51.9 Headache, unspecified; Z88.0 Allergy status to penicillin; Z79.899 Other long term (current) drug therapy
CPT/HCPCS: 36415; 70450; 71045; 80053; 83880; 84484; 85025; 85379; 93005; 99285

== ENCOUNTER 2024-07-03 18:41 | Emergency (ER) | payer MEDICAID ==
[~2024-07-03] VITALS: Ht 172.7 cm; Wt 77.9 kg
[2024-07-03 18:52] VITALS: BP 122/72; PULSE 85; RESP 16; O2SAT 97
[2024-07-03 19:30] LABS: HEMOGLOBIN 15.7 g/dl (14.0-17.9); MEAN CORPUSCULAR VOLUME 88.5 FL (78-98); MEAN PLATELET VOLUME 8.9 FL (7.4-10.4); WHITE BLOOD COUNT 6.6 X10'3 (4.5-11.0)
[2024-07-03 19:32] LABS: BASOPHILS % (AUTO) 0.8 % (0-1); EOSINOPHILS # (AUTO) 0.2 X10'3 (0-0.9); EOSINOPHILS % (AUTO) 3.3 % (0-6); HEMATOCRIT 45.8 % (42.0-52.0); LYMPHOCYTES # (AUTO) 1.7 X10'3 (1.1-4.8); LYMPHOCYTES % (AUTO) 26.2 % (21-51); MEAN CORPUSCULAR HEMOGLOBIN 30.3 PG (27.0-31.0); MEAN CORPUSCULAR HGB CONC 34.3 g/dL (33.0-36.5); MONOCYTES # (AUTO) 0.5 X10'3 (0-0.9); MONOCYTES % (AUTO) 6.8 % (2-12); NEUTROPHILS # (AUTO) 4.2 X10'3 (1.8-7.7); NEUTROPHILS % (AUTO) 62.9 % (42-75); PLATELET COUNT 295 X10'3 (140-440); RED BLOOD COUNT 5.18 X10'6 (4.70-6.10); RED CELL DISTRIBUTION WIDTH 13.4 % (11.5-14.5)
[2024-07-03 19:39] LABS: ALANINE AMINOTRANSFERASE 24 U/L (12-78); ALBUMIN/GLOBULIN RATIO 1.1 (1.1-1.5); ALKALINE PHOSPHATASE 91 IU/L (46-116); ANION GAP 5 (8-16); ASPARTATE AMINO TRANSFERASE 16 U/L (10-37); BILIRUBIN,TOTAL 0.3 MG/DL (0.1-1.0); BLOOD UREA NITROGEN 17 MG/DL (7-18); BUN/CREATININE RATIO 21.8 (10.0-20.0); CALCIUM 9.1 MG/DL (8.5-10.1); CHLORIDE 105 MMOL/L (99-107); CREATININE 0.78 MG/DL (0.60-1.10); GLUCOSE 85 MG/DL (70-104); POTASSIUM 3.8 MMOL/L (3.5-5.1); SODIUM 143 MMOL/L (135-145); TOTAL CARBON DIOXIDE 32.8 MMOL/L (24-32); TOTAL PROTEIN 7.7 G/DL (6.4-8.2); eCRCL 105 ML/MIN; eGFR > 90 ML/MIN
[2024-07-03] MEDS ORDERED: HYDR-3686 PO (20:00)
[2024-07-03 20:07] VITALS: TEMP 97.9
== END 2024-07-03 20:13 | disposition home or self-care (01) ==
LOC: ER 18:41
DX: F41.0 Panic disorder [episodic paroxysmal anxiety] (principal); E78.00 Pure hypercholesterolemia, unspecified; I10 Essential (primary) hypertension; Z88.0 Allergy status to penicillin; Z79.899 Other long term (current) drug therapy
CPT/HCPCS: 36415; 80053; 84484; 85025; 93005; 99284

== ENCOUNTER 2024-07-14 13:49 | Emergency (ER) | payer MEDICAID ==
[~2024-07-14] VITALS: Ht 170.2 cm; Wt 78.1 kg
[~2024-07-14 13:49] MED LIST changes: +HYDR-3686 PO; -NICO-687 TOP
--- NOTE | 2024-07-14 14:01 | ELECTROCARDIOGRAPH REPORT ---
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 Vinod Barrett Measurements Intervals [place] Rate: 95 P: 70 GA: 151 QRS: 64 QRSD: 95 T: 26 QT: 349 QTc: 439 Interpretive Statements Sinus rhythm Electronically Signed On 07-14-2024 19:21:[address] Vinod Barrett Please click the below link to view image of tracing.
[2024-07-14 14:11] VITALS: TEMP 97.7
[2024-07-14 14:18] LABS: BASOPHILS % (AUTO) 0.7 % (0-1); EOSINOPHILS # (AUTO) 0.2 X10'3 (0-0.9); EOSINOPHILS % (AUTO) 2.8 % (0-6); HEMATOCRIT 44.3 % (42.0-52.0); HEMOGLOBIN 15.4 g/dl (14.0-17.9); LYMPHOCYTES # (AUTO) 1.2 X10'3 (1.1-4.8); LYMPHOCYTES % (AUTO) 18.2 % (21-51); MEAN CORPUSCULAR HEMOGLOBIN 30.4 PG (27.0-31.0); MEAN CORPUSCULAR HGB CONC 34.7 g/dL (33.0-36.5); MEAN CORPUSCULAR VOLUME 87.7 FL (78-98); MEAN PLATELET VOLUME 8.5 FL (7.4-10.4); MONOCYTES # (AUTO) 0.4 X10'3 (0-0.9); MONOCYTES % (AUTO) 5.8 % (2-12); NEUTROPHILS # (AUTO) 4.8 X10'3 (1.8-7.7); NEUTROPHILS % (AUTO) 72.5 % (42-75); PLATELET COUNT 260 X10'3 (140-440); RED BLOOD COUNT 5.05 X10'6 (4.70-6.10); RED CELL DISTRIBUTION WIDTH 13.6 % (11.5-14.5); WHITE BLOOD COUNT 6.7 X10'3 (4.5-11.0)
--- NOTE | 2024-07-14 14:34 | Physician Documentation ---
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 The patient was states that is starting last night he started having some it was sternal chest pain that is seemed to go away however it has been intermittent since this morning. He says it comes and goes in his an aching sensation. He says at times he feels like his heart is beating strongly. He denies radiation to his left jaw, left shoulder down his left arm. He denies radiation to his back. He denies obvious alleviating exacerbating factors. He denies cardiac history. He states he does smoke but recently lost a lot of weight in his trying to quit smoking. He was also complaining of a chemical taste in his nose and in his mouth. It was associated with the mild headache and facial pressure. He denies fevers or chills. He says he does have some nasal congestion but denies thick green mucus from the sinuses. The patient s tates he is also slightly short of breath but that has mostly with the exertion. He does work in [employer] though he denies any obvious chemical exposure. Medication Reconciliation Allergies: Coded Allergies: Penicillins (Verified Allergy, Unknown, 07/14/24) Greater than five years ago as a kid, rash, did not require treatment. Scheduled Alprazolam* (Xanax*), 0.5 MG PO BID, (Reported) Azithromycin (Zithromax), 1 TAB PO UD Gemfibrozil (Gemfibrozil), 600 MG PO HS, (Reported) Hydroxyzine Hcl* (Atarax*), 1 TAB PO Q12H Sertraline Hcl (Zoloft), 100 MG PO DAILY, (Reported) Discontinued Medications Nicotine 21 MG Patch* (Habitrol 21 MG Patch*), 1 PATCH TOP DAILY Discontinued Reason: Auto Discontinued Past Medical History Past Medical History: High Cholesterol, Hypertension, Anxiety Past Surgical History: noncontributory Alcohol Use: None Drug Use: none Lives with: Family Lives In: Home Occupation: employed Physical Exam Vital Signs: Temperature: 97.7, Source: Temporal, Heart Rate: 85, Respiratory Rate: 14, BP: 98/61, Pulse Oximetry: 98, Weight: 78.100 Pulse Oximetry Reflects: adequate oxygenation General Appearance: alert, WD/WN, no apparent distress EENT No obvious outer facial swelling, erythema or edema. Mild tenderness to percussion of the bilateral maxillary sinuses. No obvious nasal discharge. Oropharynx within normal limits. Neck: normal inspection, full range of motion, supple, non-tender Respiratory No accessory muscle use or retractions. The lungs are clear to auscultation in all harrison. Cardiovascular No rubs, gallops or murmurs. No peripheral edema, cyanosis or clubbing of the extremities Neurologic: oriented x4, molder offbearer II-XII nml as tested, memory intact, oriented to time, oriented to person, oriented to place, oriented to events Psychiatric: normal mood/affect Skin: normal color, warm/dry Progress Results/Orders Reviewed/noted all lab results: Yes Results/Orders Orders - LUIS ALFREDO DEAL Ct Facial Bones/Soft Tissue (07/14/24 14:52) Lidocaine 2% Viscous (Xylocaine 2% Visco (07/14/24 15:10) Completed Orders - LUIS ALFREDO DEAL D-Dimer (07/14/24 14:20) Ct Facial Bones/Soft Tissue (07/14/24 14:52) Normal Saline 1000ml (Sodium Chloride 10 (07/14/24 14:30) Ketorolac Trometh 15mg/Ml Vial (Toradol (07/14/24 14:30) Mag & Alum Hydrox/Simeth Susp (Maalox Or (07/14/24 15:10) Medications Received in ER Medications (Trade) Dose Ordered Sig/Morena Route PRN Reason Start Time Stop Time Status Last Admin Dose Admin Sodium Chloride 1,000 ml @ 1,000 mls/hr ONCE ONCE IV 07/14/24 14:30 07/14/24 15:29 DC 07/14/24 14:39 1,000 MLS/HR (Toradol injection) 15 mg ONCE ONCE IV 07/14/24 14:30 07/14/24 14:31 DC 07/14/24 14:43 15 MG (Maalox oral suspension) 30 ml ONCE ONCE PO 07/14/24 15:10 07/14/24 15:11 DC 07/14/24 15:17 30 ML (Xylocaine 2% Viscous 15mL cup) 15 ml Q4H PRN MM sore throat 07/14/24 15:10 07/14/24 15:17 15 ML Vital Signs 07/14/24 07/14/24 07/14/24 07/14/24 13:55 14:11 14:11 14:43 Temp 97.7 97.7 Pulse 83 85 Resp 18 14 15 18 B/P (MAP) 112/73 98/61 (73) Pulse Ox 98 98 Laboratory Tests Test 07/14/24 14:07 White Blood Count 6.7 Red Blood Count 5.05 Hemoglobin 15.4 Hematocrit 44.3 Mean Corpuscular Volume 87.7 Mean Corpuscular Hemoglobin 30.4 Mean Corpuscular Hemoglobin Concent 34.7 Red Cell Distribution Width 13.6 Platelet Count 260 Mean Platelet Volume 8.5 Neutrophils (%) (Auto) 72.5 Lymphocytes (%) (Auto) 18.2 L Monocytes (%) (Auto) 5.8 Eosinophils (%) (Auto) 2.8 Basophils (%) (Auto) 0.7 Neutrophils # (Auto) 4.8 Lymphocytes # (Auto) 1.2 Monocytes # (Auto) 0.4 Eosinophils # (Auto) 0.2 Basophils # (Auto) 0.0 CBC Comment D-Dimer < 0.19 D-Dimer Comment Sodium Level 141 Potassium Level 3.9 Chloride Level 104 Carbon Dioxide Level 30.1 Anion Gap 7 L Blood Urea Nitrogen 21 H Creatinine 0.71 Estimated GFR/1.73 m2 > 90 BUN/Creatinine Ratio 29.6 H Glucose Level 113 H Calcium Level 8.8 Total Bilirubin 0.5 Aspartate Amino Transf (AST/SGOT) 15 Alanine Aminotransferase (ALT/SGPT) 22 Alkaline Phosphatase 85 Troponin I High Sensitivity 5 Pro-B-Type Natriuretic Peptide < 30 Total Protein 7.3 Albumin 3.8 Globulin 3.5 Albumin/Globulin Ratio 1.1 Chemistry Comments EKG/XRAY/CT/US/VASC/MRI EKG : Intepreting Monitor?: No Additional Comment Twelve lead EKGs interpreted by me: Sinus rhythm rate of 95. No ectopy, ischemia, ST elevation or depression. Chest X-Ray : Interpreted By: self Views: 1 VIEW Additional Comments One view chest x-ray as interpreted by me: No acute disease process. The cardiac silhouette and lung harrison are appropriate. No obvious bony abnormalities. Soft tissues are unremarkable. Medical Decision Making Findings The patient was cardiac was all with a normal limits. The patient was states he has been smoking a lot and has point tenderness to the right sternal border of the chest at the costosternal junction which is reproducible with the palpation. I suspect his symptoms more secondary to chest wall pain and/or costochondritis which he has been diagnosed with in the past. Aside from smoking the patient has not no other risk factors and scores a one of the heart score. I did tell him you can follow up with the primary care physician for further outpatient testing and referral to paint mixer if deemed necessary. Regarding the chemical smell he gets in his nose he does have a mucous retention cyst with thickening of the maxillary and ethmoid sinuses. Findings consistent with sinusitis. We are going to place him on Levaquin as he was allergic to penicillins. I will give him 500 mg once a day for 14 days and instruct him to use Flonase and Sudafed. Again you can follow up with the primary care physician for recheck in the next couple of days and return to the ER for any worsening or concerning symptoms. Additional Information Nonspecific chest pain. Chest wall pain. Costochondritis. Pleurisy. Chemical exposure. Rule out ACS. Sinusitis. Departure Disposition: HOME / SELF CARE / HOMELESS Impression: Primary Impression: Acute maxillary sinusitis Additional Impressions: Mucous retention cyst of maxillary sinus Chest pain Condition: Stable Discharge Instructions: Nonspecific Chest Pain, Adult, Sinus Endoscopy, Care After Additional Instructions: Your workup today did show sinusitis and a polyp in your sinuses which is probably causing the sinusitis. I will give him medication for this and you can always use [id number] Sudafed and Flonase. Regarding the chest pain the symptoms you are experiencing do not appear to be coming from your heart. You c an always follow up with the primary care physician for referral to a paint mixer for further outpatient testing. Return to the ER for any worsening or concerning symptoms Referrals: NO PRIMARY CARE PROVIDER (PCP) Prescriptions Levofloxacin (Levofloxacin) 500 Mg Tablet 1 TAB PO DAILY for 14 Days, #14 TAB Prov: LUIS ALFREDO DEAL 07/14/24 Signature Scribe Signature: No scribe Attestation: The note accurately reflects work and decisions made by me.Luis Alfredo GONZALEZ 07/14/24 16:01 LUIS ALFREDO DEAL Jul 14, 2024 14:34
[2024-07-14 14:37] LABS: ALANINE AMINOTRANSFERASE 22 U/L (12-78); ALBUMIN 3.8 G/DL (3.4-5.0); ALBUMIN/GLOBULIN RATIO 1.1 (1.1-1.5); ALKALINE PHOSPHATASE 85 IU/L (46-116); ANION GAP 7 (8-16); ASPARTATE AMINO TRANSFERASE 15 U/L (10-37); BILIRUBIN,TOTAL 0.5 MG/DL (0.1-1.0); BLOOD UREA NITROGEN 21 MG/DL (7-18); BUN/CREATININE RATIO 29.6 (10.0-20.0); CALCIUM 8.8 MG/DL (8.5-10.1); CHLORIDE 104 MMOL/L (99-107); CREATININE 0.71 MG/DL (0.60-1.10); GLUCOSE 113 MG/DL (70-104); POTASSIUM 3.9 MMOL/L (3.5-5.1); PRO BRAIN NATRIURETIC PEPTIDE < 30 PG/ML (0-125); SODIUM 141 MMOL/L (135-145); TOTAL CARBON DIOXIDE 30.1 MMOL/L (24-32); TOTAL PROTEIN 7.3 G/DL (6.4-8.2); eCRCL 111 ML/MIN; eGFR > 90 ML/MIN
[2024-07-14] MEDS: normal saline 1000ml 1,000 ML IV ONE (14:39)
--- NOTE | 2024-07-14 14:39 | RADIOLOGY REPORT ---
CHEST RADIOGRAPH Indication: CP Technique: Single frontal view of the chest was obtained COMPARISON: DI CHEST,SINGLE VIEW on DOS: 06/19/24, DI CHEST,SINGLE VIEW on DOS: 06/12/24, DI CHEST,SINGL E VIEW on DOS: 04/03/24, DI CHEST,SINGLE VIEW on DOS: 09/03/23, DI CHEST,SINGLE VIEW on DOS: 01/22/23 FINDINGS: Lines and Tubes: None Lungs: Clear Pleura: No effusion. No pneumothorax. Cardiomediastinal contours: Unremarkable Bones: Unremarkable IMPRESSION: No acute disease.
[2024-07-14 14:42] LABS: D-DIMER < 0.19 MG/L FEU (0-0.50)
[2024-07-14] MEDS: ketorolac trometh 15mg/ml vial 15 MG/ML ML IV ONE (14:43)
[2024-07-14] MEDS: mag hydrox/Alum hydrox/simeth 30ml oral suspension PO ONE (15:17)
[2024-07-14] MEDS: LIDOcaine 2% Viscous 15ml cup MM PRN (15:17)
--- NOTE | 2024-07-14 15:36 | RADIOLOGY REPORT ---
Procedure: CT CT FACIAL BONES/SOFT TISSUE [facility] Study Date and Requested Time: 07/14/2024 02:48 PM History: Facial pain and pressure Comparison: None Dose: CTDI: 54.18 mGy DLP: 927.78 mGycm Technique: Multiplanar images obtained through the face without intravenous contrast. Findings: Streak artifact from dental amalgam limits evaluation of the adjacent structures. Minimal facial soft tissue edema with no drainable fluid collection is noted. Maxillary spine fracture of unknown chronicity. No significant dental caries. Polypoid mucoperiosteal thickening of the left maxillary sinus with mucous retention cyst within the left maxillary sinus. Minimal mucoperiosteal thickening of the ethmoid air cells and right maxillary sinus. The remainder of the paranasal sinuses and mastoids are clear. The orbits and globes are unremarkable. Nasal cavity and visualized nasopharynx and oropharynx are grossly unremarkable with no evidence of f ocal lesion. Impression: Minimal facial soft tissue edema. No drainable fluid collection is noted. Maxillary spine fracture of unknown chronicity. Polypoid mucoperiosteal thickening of the left maxillary sinus with mucous retention cyst within the left maxillary sinus. Minimal mucoperiosteal thickening of the ethmoid air cells and right maxillary sinus.
[2024-07-14] MEDS ORDERED: LEVO-65 PO (16:01)
[2024-07-14 16:18] VITALS: BP 107/64; PULSE 69; RESP 15; O2SAT 97
== END 2024-07-14 16:18 | disposition home or self-care (01) ==
LOC: ER 13:50
DX: J01.00 Acute maxillary sinusitis, unspecified (principal); R07.2 Precordial pain; E78.00 Pure hypercholesterolemia, unspecified; I10 Essential (primary) hypertension; F41.9 Anxiety disorder, unspecified; Z87.891 Personal history of nicotine dependence; Z88.0 Allergy status to penicillin
CPT/HCPCS: 36415; 70486; 71045; 80053; 83880; 84484; 85025; 85379; 93005; 96361; 96374; 99285; J1885; J7030

== ENCOUNTER 2024-09-25 18:48 | Emergency (ER) | payer MEDICAID ==
[~2024-09-25] VITALS: Ht 172.7 cm; Wt 78.1 kg
[~2024-09-25 18:48] MED LIST changes: -HYDR-3686 PO
[2024-09-25 18:54] VITALS: TEMP 97.3
--- NOTE | 2024-09-25 19:06 | ELECTROCARDIOGRAPH REPORT ---
[facility] Test Date: 2024-09-25 Test Time: 19:05:09 Pat Name: EMIL MADISON Department: [facility]- Patient ID: [facility]-[id number] Room: Gender: M Pouncer Machine: MANUEL : 1970 Requested By: JOHN MARKS Order Number: [id number] Reading MD: Measurements Intervals [place] Rate: 90 P: 69 SC: 157 QRS: 64 QRSD: 88 T: 35 QT: 349 QTc: 427 Interpretive Statements Sinus rhythm Probable left atrial enlargement Minimal ST elevation, anterior leads Please click the below link to view image of tracing.
[2024-09-25 19:23] LABS: MEAN PLATELET VOLUME 8.7 FL (7.4-10.4); RED CELL DISTRIBUTION WIDTH 13.0 % (11.5-14.5)
[2024-09-25 19:39] LABS: CREATININE 0.95 MG/DL (0.60-1.10); PRO BRAIN NATRIURETIC PEPTIDE 36 PG/ML (0-125); TOTAL CARBON DIOXIDE 25.4 MMOL/L (24-32); eCRCL 85 ML/MIN; eGFR 82 ML/MIN
--- NOTE | 2024-09-25 20:30 | Physician Documentation ---
History of Present Illness ~ Chief Complaint: Palpitations Stated Complaint: SEE RICHELLEIF COMPLAINT Time Seen by MD: 20:29 Primary Medical Doctor: Dr helms HPI 54-year-old male, history of anxiety, who presents with palpitations and related symptoms. He tells me that he had a history of anxiety when he was younger including panic attacks. His parents both in the last couple of years, and since that time he has had gradually worsening symptoms of anxiety. He tells me he has racing thoughts, palpitations, intermittent chest pain, difficulty concentrating, and feels very amped up. He has not been eating well and has lost a lot of weight. He has been on Xanax for a long time, as well as an antidepressant. His primary doctor is trying to taper him off the Xanax, which makes him more anxious. He came in today because he wants to make sure there isn't a medical cause for his symptoms. No fevers, current chest pain, current shortness of breath, abdominal pain, vomiting, diarrhea, or other current symptoms other than those listed above. Medication Reconciliation Allergies: Coded Allergies: Penicillins (Verified Allergy, Unknown, 09/25/24) Greater than five years ago as a kid, rash, did not require treatment. Scheduled Alprazolam* (Xanax*), 0.5 MG PO BID, (Reported) Azithromycin (Zithromax), 1 TAB PO UD Gemfibrozil (Gemfibrozil), 600 MG PO HS, (Reported) Hydroxyzine Hcl* (Atarax*), 1 TAB PO Q8H Sertraline Hcl (Zoloft), 100 MG PO DAILY, (Reported) Past Medical History Past Medical History: High Cholesterol, Hypertension, Anxiety Past Surgical History: noncontributory Alcohol Use: None Drug Use: none Lives with: Family Lives In: Home Occupation: employed Review of Systems Constitutional: Denies: fever Respiratory: Reports: shortness of breath Cardiovascular: Reports: chest pain, lightheadedness Psychiatric: Reports: anxiety Physical Exam Vital Signs: Temperature: 97.3, Source: Temporal, Heart Rate: 100, Respiratory Rate: 16, BP: 113/78, Pulse Oximetry: 98, Weight: 78.100 Oxygen Flow Rate: 0 Physical Exam General: This is a extremely anxious 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 Speaks in full and long sentences Extremities: Warm and well-perfused Neuro: Alert and oriented Psychiatric: The patient appears very anxious, has rapid speech, appears unable to sit still. He is cooperative. He does not appear intoxicated, does not appear to be responding to internal stimuli. He does appear to have some insight into his condition. Progress Results/Orders Results/Orders Orders - JOHN MARKS MD Chest,Single View (09/25/24 19:02) Monitor (09/25/24 19:02) Saline Lock (09/25/24 19:02) Oxygen (09/25/24 19:02) Hs Troponin I W Calculations (09/25/24 21:02) Hs Troponin I W Calculations (09/25/24 22:02) Completed Orders - JOHN MARKS MD Chest,Single View (09/25/24 19:02) Cbc/Diff (09/25/24 19:02) BMP (09/25/24 19:02) PBNP (09/25/24 19:02) Electrocardiogram (09/25/24 19:02) Hs Troponin I W Calculations (09/25/24 19:02) MG (09/25/24 19:03) TSH (09/25/24 19:03) Hydroxyzine Tablet (Atarax Tablet) (09/25/24 21:00) Vital Signs 09/25/24 09/25/24 09/25/24 18:54 20:33 20:34 Temp 97.3 Pulse 100 84 Resp 16 18 16 B/P (MAP) 113/78 122/75 (91) Pulse Ox 98 98 O2 Flow Rate 0 Laboratory Tests Test 09/25/24 19:07 White Blood Count 8.0 Red Blood Count 4.98 Hemoglobin 15.4 Hematocrit 44.2 Mean Corpuscular Volume 88.7 Mean Corpuscular Hemoglobin 30.9 Mean Corpuscular Hemoglobin Concent 34.9 Red Cell Distribution Width 13.0 Platelet Count 300 Mean Platelet Volume 8.7 Neutrophils (%) (Auto) 67.0 Lymphocytes (%) (Auto) 20.9 L Monocytes (%) (Auto) 7.2 Eosinophils (%) (Auto) 3.9 Basophils (%) (Auto) 1.0 Neutrophils # (Auto) 5.3 Lymphocytes # (Auto) 1.7 Monocytes # (Auto) 0.6 Eosinophils # (Auto) 0.3 Basophils # (Auto) 0.1 CBC Comment Sodium Level 137 Potassium Level 4.1 Chloride Level 103 Carbon Dioxide Level 25.4 Anion Gap 9 Blood Urea Nitrogen 20 H Creatinine 0.95 Estimated GFR/1.73 m2 82 BUN/Creatinine Ratio 21.1 H Glucose Level 91 Calcium Level 9.2 Magnesium Level 2.0 Troponin I High Sensitivity < 4 L Troponin I High Sens Percent Delta Troponin I Hi Sens Absolute Change Pro-B-Type Natriuretic Peptide 36 Albumin 4.1 Thyroid Stimulating Hormone (TSH) 1.08 Chemistry Comments EKG/XRAY/CT/US/VASC/MRI EKG : Additional Comment I personally interpreted the EKG and this shows: Sinus rhythm, rate 90, QTC 427, no STEMI or acute ischemic changes Chest X-Ray : Additional Comments I personally reviewed the chest x-ray, and it shows: No focal consolidation, no pulmonary edema, no mediastinal widening Medical Decision Making Differential Dx:Considerations: Include: angina / LA, atrial fibrillation, PVCs Differential Dx:Considerations: Include anxiety/panic attack, Include electrolyte disorder, Include heart failure, Include hyperthyroidism, Include renal failure Assessment 54-year-old male who presents with multiple symptoms including anxiety and palpitations. Per his history and exam I suspect that many of his symptoms are actually related to anxiety, he has no other specific findings on his exam. His workup was unremarkable including his blood testing, thyroid function, electrolytes, kidney function, and heart testing. His EKG is reassuring, troponin is normal, no evidence of ACS or congestive heart failure. Overall, I suspect his symptoms are all related to stress and anxiety. I do not see evidence of an acute medical or surgical emergency. He has follow up in 3 days with a psychiatrist already scheduled. He has a primary care doctor who has already managing his psychiatric medications. I feel he is safe for discharge home at this time. He will be given a trial of hydroxyzine to see if it helps with the symptoms. Return precautions given. Departure Time of Disposition: 21:01 Disposition: 01 HOME / SELF CARE / HOMELESS Impression: Primary Impression: Anxiety Additional Impression: Stress reaction Condition: Stable Discharge Instructions: Managing Anxiety, Adult Referrals: NO PRIMARY CARE PROVIDER (PCP) Prescriptions Hydroxyzine Hcl* (Atarax*) 25 Mg Tablet 1 TAB PO Q8H for anxiety for 10 Days, #30 TAB Prov: JOHN MARKS MD 09/25/24 Education Educated: Patient Educated regarding: diagnosis, treatment, need for follow up Signature Scribe Signature: elvia Attestation: JOHN York MD Sep 25, 2024 20:30
[2024-09-25] MEDS ORDERED: HYDR-3686 PO (21:02)
[2024-09-25 21:27] VITALS: BP 123/75; PULSE 90; RESP 16; O2SAT 98
--- NOTE | 2024-09-25 22:14 | RADIOLOGY REPORT ---
CHEST RADIOGRAPH Indication: CP Technique: Single frontal view of the chest was obtained COMPARISON: DI CHEST,SINGLE VIEW on DOS: 07/14/24, DI CHEST,SINGLE VIEW on DOS: 06/19/24, DI CHEST,SINGL E VIEW on DOS: 06/12/24, DI CHEST,SINGLE VIEW on DOS: 04/03/24, DI CHEST,SINGLE VIEW on DOS: 09/03/23 FINDINGS: Lines and Tubes: None Lungs: Clear Pleura: No effusion. No pneumothorax. Cardiomediastinal contours: Unremarkable Bones: Unremarkable IMPRESSION: 1. No acute disease.
== END 2024-09-25 21:29 | disposition home or self-care (01) ==
LOC: ER 18:49
DX: F41.9 Anxiety disorder, unspecified (principal); F43.9 Reaction to severe stress, unspecified; I10 Essential (primary) hypertension; E78.00 Pure hypercholesterolemia, unspecified; Z88.0 Allergy status to penicillin; Z79.899 Other long term (current) drug therapy
CPT/HCPCS: 36415; 71045; 80048; 83735; 83880; 84443; 84484; 85025; 93005; 99285; Q0177

== ENCOUNTER 2024-10-29 22:50 | Emergency (ER) | payer MEDICAID ==
[~2024-10-29] VITALS: Ht 172.7 cm; Wt 80.2 kg
[2024-10-29 22:58] VITALS: BP 112/71; PULSE 95; RESP 15; O2SAT 97
--- NOTE | 2024-10-29 23:41 | Physician Documentation ---
History of Present Illness ~ Chief Complaint: Cold, cough & congestion Stated Complaint: CONGESTION Time Seen by MD: 23:41 Primary Medical Doctor: Dr helms [facility] Patient presents to the emergency room for evaluation of congestion sinus pressure cough onset of symptoms one-week ago. He has had similar symptoms previously and treated for sinusitis. No fevers Medication Reconciliation Allergies: Coded Allergies: Penicillins (Verified Allergy, Unknown, 10/29/24) Greater than five years ago as a kid, rash, did not require treatment. Scheduled Alprazolam* (Xanax*), 0.5 MG PO BID, (Reported) Azithromycin (Zithromax), 1 TAB PO UD Gemfibrozil (Gemfibrozil), 600 MG PO HS, (Reported) Sertraline Hcl (Zoloft), 100 MG PO DAILY, (Reported) Past Medical History Past Medical History: High Cholesterol, Hypertension, Anxiety Past Surgical History: noncontributory Alcohol Use: None Drug Use: none Lives with: Family Lives In: Home Occupation: employed Review of Systems ROS All review of systems negative except as per HPI Physical Exam Vital Signs: Temperature: 96.8, Source: Temporal, Heart Rate: 95, Respiratory Rate: 15, BP: 112/71, Pulse Oximetry: 97, Weight: 80.250 Physical Exam General: Patient is awake, alert, oriented x4 in no acute distress Head: Normocephalic and atraumatic. Eyes: Conjunctival normal. EOMI. PERRL. ENT: Mucous membranes moist. Injected nasal mucosa with tenderness to palpation to maxillary sinus Neck: Supple, trachea is midline. Chest: Clear to auscultation bilaterally without rales, rhonchi, or wheezes. There is no accessory muscle use or retractions. Cardiac: RRR without murmurs, gallops, or rubs. Progress Results/Orders Results/Orders Orders - JOSE MIGUEL HERNANDEZ MD Ibuprofen Tablet (Motrin Tablet) (10/29/24 23:55) Acetaminophen 325mg Tablet (Tylenol Tabl (10/29/24 23:55) Vital Signs 10/29/24 22:58 Temp 96.8 Pulse 95 Resp 15 B/P (MAP) 112/71 Pulse Ox 97 Medical Decision Making Findings Patient presents to the emergency room with cough cold congestion symptoms as per HPI. Differentials include but are not limited to sinusitis viral syndrome bronchitis pneumonia. Lungs are clear and vitals are stable and he had not feel he requires x-ray or emergent labs. We will treat for sinusitis. He is waiting for referral to ENT Departure Disposition: HOME / SELF CARE / HOMELESS Impression: Primary Impression: Sinusitis Condition: Stable Discharge Instructions: Sinus Infection, Adult Referrals: NO PRIMARY CARE PROVIDER (PCP) Prescriptions Prednisone* (Prednisone*) 5 Mg Tablet 1 TAB PO DAILY, #5 TAB 0 Refills Prov: JOSE MIGUEL HERNANDEZ MD 10/29/24 Levofloxacin (Levofloxacin) 500 Mg Tablet 1 TAB PO DAILY for 7 Days, #7 TAB Prov: JOSE MIGUEL HERNANDEZ MD 10/29/24 Education Educated: Patient Educated regarding: diagnosis, treatment, need for follow up Signature Scribe Signature: No scribe Attestation: The note accurately reflects work and decisions made by me.Jose Miguel Hernandez MD 10/29/24 23:56 JOSE MIGUEL HERNANDEZ MD Oct 29, 2024 23:41
[2024-10-29 23:52] VITALS: TEMP 96.8
[2024-10-29] MEDS ORDERED: PRED5TAB PO (23:56)
[2024-10-29] MEDS ORDERED: LEVO-65 PO (23:56)
[2024-10-29] MEDS: ibuprofen tablet 400 MG TABLET PO ONE (23:58)
== END 2024-10-30 00:07 | disposition home or self-care (01) ==
LOC: ER 22:51
DX: J32.9 Chronic sinusitis, unspecified (principal); F41.9 Anxiety disorder, unspecified; I10 Essential (primary) hypertension; E78.00 Pure hypercholesterolemia, unspecified; Z88.0 Allergy status to penicillin; Z79.899 Other long term (current) drug therapy
CPT/HCPCS: 99284

== ENCOUNTER 2024-11-09 22:07 | Emergency (ER) | payer MEDICAID ==
[~2024-11-09] VITALS: Ht 172.7 cm; Wt 80.9 kg
[~2024-11-09 22:07] MED LIST changes: +PRED5TAB PO
--- NOTE | 2024-11-09 22:15 | ELECTROCARDIOGRAPH REPORT ---
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
[2024-11-09 22:20] LABS: MEAN PLATELET VOLUME 8.3 FL (7.4-10.4); RED CELL DISTRIBUTION WIDTH 13.4 % (11.5-14.5)
--- NOTE | 2024-11-09 22:50 | RADIOLOGY REPORT ---
EXAMINATION: DI CHEST,SINGLE VIEW CLINICAL HISTORY: CP COMPARISON: DI CHEST,SINGLE VIEW on DOS: 09/25/24 No dominant consolidations. The costophrenic angles are clear. No sizable pleural effusions or pneum othorax. The cardiomediastinal silhouette appears within normal limits given technique. IMPRESSION: No acute cardiopulmonary findings as visualized.
[2024-11-09 22:53] LABS: CREATININE 0.87 MG/DL (0.60-1.10); PRO BRAIN NATRIURETIC PEPTIDE 31 PG/ML (0-125); TOTAL CARBON DIOXIDE 27.5 MMOL/L (24-32); eCRCL 93 ML/MIN; eGFR > 90 ML/MIN
--- NOTE | 2024-11-10 00:19 | Physician Documentation ---
History of Present Illness ~ Chief Complaint: Chest Pain Stated Complaint: CP/SOB Time Seen by MD: 00:16 Primary Medical Doctor: Dr helms Mode of Arrival: POV HPI Patient presents to the emergency room with multiple life stressors including some she chest discomfort that has that has exacerbated in his upper chest with palpation and relieved by nothing. 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 No syncope. History of anxiety. Patient does smoke but denies history of blood pressure cholesterol or diabetes. Denies family history of heart disease. Medication Reconciliation Allergies: Coded Allergies: Penicillins (Verified Allergy, Unknown, 10/29/24) Greater than five years ago as a kid, rash, did not require treatment. Scheduled Alprazolam* (Xanax*), 0.5 MG PO BID, (Reported) Azithromycin (Zithromax), 1 TAB PO UD Gemfibrozil (Gemfibrozil), 600 MG PO HS, (Reported) Prednisone* (Prednisone*), 1 TAB PO DAILY Sertraline Hcl (Zoloft), 100 MG PO DAILY, (Reported) Discontinued Medications Levofloxacin (Levofloxacin), 1 TAB PO DAILY Discontinued Reason: Auto Discontinued Past Medical History Past Medical History: High Cholesterol, Hypertension, Anxiety Past Surgical History: noncontributory Alcohol Use: None Drug Use: none Lives with: Family Lives In: Home Occupation: employed Review of Systems ROS All review of systems negative except as per HPI Physical Exam Vital Signs: Temperature: 98.0, Heart Rate: 69, Respiratory Rate: 14, BP: 112/67, Pulse Oximetry: 95, Weight: 80.900 Oxygen Flow Rate: 0 Physical Exam General: Patient is awake, alert, oriented x4 in no acute distress and well appearing.~ Head: Normocephalic and atraumatic. Eyes: Conjunctival normal. EOMI. PERRL. ENT: Mucous membranes moist. Neck: Supple, trachea is midline. Chest: Clear to auscultation bilaterally without rales, rhonchi, or wheezes. There is no accessory muscle use or retractions. Cardiac: RRR without murmurs, gallops, or rubs. Progress Results/Orders Results/Orders Orders - JOSE MIGUEL HERNANDEZ MD Chest,Single View (11/09/24 22:20) Monitor (11/09/24 22:14) Saline Lock (11/09/24 22:14) Oxygen (11/09/24 22:14) Hs Troponin I W Calculations (11/10/24 00:14) Hs Troponin I W Calculations (11/10/24 01:14) Completed Orders - JOSE MIGUEL HERNANDEZ MD Chest,Single View (11/09/24 22:20) Cbc/Diff (11/09/24 22:14) BMP (11/09/24 22:14) PBNP (11/09/24 22:14) Electrocardiogram (11/09/24 22:14) Hs Troponin I W Calculations (11/09/24 22:14) Vital Signs 11/09/24 11/09/24 22:14 23:45 Temp 98.0 Pulse 89 69 Resp 14 B/P (MAP) 128/86 112/67 (82) Pulse Ox 95 95 O2 Flow Rate 0 Laboratory Tests Test 11/09/24 22:14 White Blood Count 7.2 Red Blood Count 4.99 Hemoglobin 15.1 Hematocrit 43.9 Mean Corpuscular Volume 88.0 Mean Corpuscular Hemoglobin 30.3 Mean Corpuscular Hemoglobin Concent 34.5 Red Cell Distribution Width 13.4 Platelet Count 290 Mean Platelet Volume 8.3 Neutrophils (%) (Auto) 60.9 Lymphocytes (%) (Auto) 27.1 Monocytes (%) (Auto) 7.1 Eosinophils (%) (Auto) 4.2 Basophils (%) (Auto) 0.7 Neutrophils # (Auto) 4.4 Lymphocytes # (Auto) 1.9 Monocytes # (Auto) 0.5 Eosinophils # (Auto) 0.3 Basophils # (Auto) 0.1 CBC Comment Sodium Level 141 Potassium Level 3.7 Chloride Level 105 Carbon Dioxide Level 27.5 Anion Gap 9 Blood Urea Nitrogen 22 H Creatinine 0.87 Estimated GFR/1.73 m2 > 90 BUN/Creatinine Ratio 25.3 H Glucose Level 100 Calcium Level 9.0 Troponin I High Sensitivity 4 Pro-B-Type Natriuretic Peptide 31 Albumin 4.0 Chemistry Comments EKG/XRAY/CT/US/VASC/MRI EKG : Additional Comment EKG interpreted by myself shows time of 2210, rate 90, sinus rhythm, normal axis, no ST changes Chest X-Ray : Additional Comments Exam: CHEST,SINGLE VIEW EXAMINATION: DI CHEST,SINGLE VIEW CLINICAL HISTORY: CP COMPARISON: DI CHEST,SINGLE VIEW on DOS: 09/25/24 No dominant consolidations. The costophrenic angles are clear. No sizable pleural effusions or pneumothorax. The cardiomediastinal silhouette appears within normal limits given technique. IMPRESSION: No acute cardiopulmonary findings as visualized. Medical Decision Making Findings Patient presents to the emergency room with vague atypical chest pain as per HPI. Differentials include but are not limited to ACS, pulmonary embolism, aortic pathology, anxiety, musculoskeletal pain therefore emergent labs and chest x-ray indicated. Chest x-ray is reassuring as his EKG and labs. He is considered low risk with a heart score of one. He has excellent follow up. ER precautions discussed. No hypoxia, no tachycardia no calf tenderness to palpation and he had not feel he requires investigation into possible pulmonary embolism. Departure Disposition: HOME / SELF CARE / HOMELESS Impression: Primary Impression: Chest pain Condition: Stable Discharge Instructions: Nonspecific Chest Pain, Adult Referrals: NO PRIMARY CARE PROVIDER (PCP) Signature Scribe Signature: No scribe Attestation: The note accurately reflects work and decisions made by me.Jose Miguel Hernandez MD 11/10/24 00:36 JOSE MIGUEL HERNANDEZ MD Nov 10, 2024 00:19
[2024-11-10 00:51] VITALS: BP 128/82; PULSE 64; RESP 10; TEMP 98; O2SAT 98
== END 2024-11-10 00:52 | disposition home or self-care (01) ==
LOC: ER 22:07
DX: R07.89 Other chest pain (principal); R06.02 Shortness of breath; E78.00 Pure hypercholesterolemia, unspecified; I10 Essential (primary) hypertension; Z88.0 Allergy status to penicillin; Z88.8 Allergy status to other drugs, medicaments and biological substances
CPT/HCPCS: 36415; 71045; 80048; 83880; 84484; 85025; 93005; 99285

== ENCOUNTER 2024-11-15 00:27 | Emergency (ER) | payer MEDICAID ==
[~2024-11-15] VITALS: Ht 172.7 cm; Wt 79.5 kg
[2024-11-15 00:30] VITALS: TEMP 97.5
--- NOTE | 2024-11-15 00:37 | Physician Documentation ---
History of Present Illness ~ Stated Complaint: FLANK PAIN Time Seen by MD: 00:32 Primary Medical Doctor: Dr helms [facility] This is a 54-year-old gentleman with a known history of smoking presents for evaluation of right-sided flank pain/right-sided chest pain in the lower aspect. It has been present for some time. The pain appears to be pleuritic. No particular palliating factors. Did not attempt to treat it with the [id number] medications. No significant shortness a breath. He feels that the pain wraps around from his right flank all the way to his sternum and he is experiencing aches and pains in his costosternal joints all along the sternum itself. Incidentally also reports recent development of disequilibrium where he feels that his vision jerks up and down occasionally. This can be associated with the chest pain in question. No fever or chills. Medication Reconciliation Allergies: Coded Allergies: Penicillins (Verified Allergy, Unknown, 10/29/24) Greater than five years ago as a kid, rash, did not require treatment. Scheduled Alprazolam* (Xanax*), 0.5 MG PO BID, (Reported) Azithromycin (Zithromax), 1 TAB PO UD Gemfibrozil (Gemfibrozil), 600 MG PO HS, (Reported) Prednisone* (Prednisone*), 1 TAB PO DAILY Sertraline Hcl (Zoloft), 100 MG PO DAILY, (Reported) Past Medical History Past Medical History: High Cholesterol, Hypertension, Anxiety Past Surgical History: noncontributory Alcohol Use: None Drug Use: none Lives with: Family Lives In: Home Occupation: employed Review of Systems ROS 10 point review of systems was performed and unless noted above in HPI is negative for acute process/complaint. Physical Exam Physical Exam GENERAL: Awake, alert, oriented, GCS 15, no apparent distress, non-toxic appearing, answers questions, follows commands appropriately. Examined in triage HEENT: Atraumatic, normocephalic, pupils equal, extraocular muscles intact, sclerae anicteric, mucus membranes moist, oropharynx is clear, no stridor. NECK: supple, full active range of motion, trachea midline, no thyromegaly, no lymphadenopathy, no JVD. CARDIOVASCULAR: regular rate/rhythm, no murmurs/gallops/rubs, Pulses are 2+ in all extremities and symmetric. Capillary refill less than 2 seconds. PULMONARY: Nonlabored, slightly decreased left lower lung field air movement ,no respiratory distress, speaking in full sentences, clear to auscultation bilaterally, no wheezing, no ronchi, no rales, no accessory muscle use. GASTROINTESTINAL: Soft, non-tender, non-distended, normal active bowel sounds, no organomegaly, no pulsatile masses, no CVA tenderness. NEUROLOGIC: Lucid with normal mental status. Normal facial symmetry. Moves all extremities symmetrically and with purpose. No truncal ataxia. Speech is fluid without evidence of dysarthria or aphasia, no focal deficits appreciated. MUSCULOSKELETAL: There is full range of motion of all extremities. There is no joint pain or joint swelling or joint erythema. There is no muscle pain or tenderness or swelling. EXTREMITIES: warm, well-perfused, no cyanosis, no clubbing, no edema, no acute deformities. Skin: warm, dry, no rashes or lesions, no jaundice, no petechiae orpurpura. No ecchymosis. PSYCHIATRIC: Normal affect, normal insight, normal concentration. Focused exam: [No reproducible chest wall pain during palpation. No crepitus. No flail segments.] Progress Results/Orders Results/Orders Orders - MARINO MARQUEZ DO Saline Lock (11/15/24:) Ct Head (11/15/24:) Ct Chest (11/15/24:) Hs Troponin I W Calculations (11/15/24 02:32) Completed Orders - MARINO MARQUEZ DO Cbc/Diff (11/15/24:) CK (11/15/24:) ESR (11/15/24:) C-Reactive Protein (11/15/24:) Urinalysis, Cult If Indicated (11/15/24) MG (11/15/24:) Normal Saline 1000ml (0.9% Sodium Chlori (11/15/24 00:35) Ct Head (11/15/24:) Ct Chest (11/15/24:32) CMP (11/15/24:) Hs Troponin I W Calculations (11/15/24:) D-Dimer (8/31/25 00:32) Ketorolac Trometh 30mg/Ml Vial (Toradol (11/15/24 00:35) Medications Received in ER Medications (Trade) Dose Ordered Sig/Morena Route PRN Reason Start Time Stop Time Status Last Admin Dose Admin (0.9% sodium chloride (NS) 1000ml IV soln) 1,000 ml ONCE ONCE IVB 11/15/24 00:35 11/15/24 00:36 DC 11/15/24 02:25 1,000 ML (Toradol inj. 30mg/ml) 30 mg ONCE ONCE IV 11/15/24 00:35 11/15/24 00:36 DC 11/15/24 02:27 30 MG Vital Signs 11/15/24 11/15/24 00:30 02:27 Temp 97.5 Pulse 87 Resp 14 14 B/P (MAP) 121/69 Pulse Ox 97 O2 Flow Rate 0 Laboratory Tests Test 11/15/24 01:16 11/15/24 01:17 11/15/24 02:00 11/15/24 02:24 White Blood Count 6.7 Red Blood Count 4.65 L Hemoglobin 14.2 Hematocrit 41.0 L Mean Corpuscular Volume 88.1 Mean Corpuscular Hemoglobin 30.6 Mean Corpuscular Hemoglobin Concent 34.7 Red Cell Distribution Width 13.3 Platelet Count 248 Mean Platelet Volume 8.8 Neutrophils (%) (Auto) 55.0 Lymphocytes (%) (Auto) 31.1 Monocytes (%) (Auto) 8.4 Eosinophils (%) (Auto) 4.5 Basophils (%) (Auto) 1.0 Neutrophils # (Auto) 3.7 Lymphocytes # (Auto) 2.1 Monocytes # (Auto) 0.6 Eosinophils # (Auto) 0.3 Basophils # (Auto) 0.1 CBC Comment D-Dimer < 0.19 D-Dimer Comment Sodium Level 141 Potassium Level 4.1 Chloride Level 103 Carbon Dioxide Level 30.5 Anion Gap 8 Blood Urea Nitrogen 26 H Creatinine 0.86 Estimated GFR/1.73 m2 > 90 BUN/Creatinine Ratio 30.2 H Glucose Level 95 Calcium Level 9.2 Magnesium Level 2.1 Total Bilirubin 0.4 Aspartate Amino Transf (AST/SGOT) 19 Alanine Aminotransferase (ALT/SGPT) 20 Alkaline Phosphatase 80 Total Creatine Kinase 111 Troponin I High Sensitivity 4 C-Reactive Protein 0.09 Total Protein 7.4 Albumin 3.9 Globulin 3.5 Albumin/Globulin Ratio 1.1 Chemistry Comments Erythrocyte Sedimentation Rate 10 Urine Specimen Description Non-specified Urine Color Yellow Urine Clarity Clear Urine pH 6.0 Urine Specific [place] 1.020 Urine Protein Negative Urine Glucose (UA) Negative Urine Ketones Negative Urine Occult Blood Negative Urine Nitrite Negative Urine Bilirubin Negative Urine Urobilinogen 0.2 Urine Leukocyte Esterase Negative Urine Culture Indicated Not ind Volume Urine Centrifuged 10 ml Urine Comment Medical Decision Making Findings Facility Status: ED Holds, [facility] process The plan was discussed with the patient, who demonstrates clear understanding of the plan and is in agreement with the plan unless otherwise noted in the chart. All questions have been answered, all concerns were addressed unless otherwise documented. I was available throughout their ED stay for frequent reassessment and questions. Differential Diagnoses (considered and possible or likely): [Differential diagnosis considered includes chest wall pain, pleurisy, pneumonia, pulmonary embolus, GERD, esophagitis, gastritis, anxiety, stress reaction, costochondritis, acute coronary syndrome, aortic dissection, pericarditis, myocarditis, or pneumothorax. Less likely to be pyelitis, pyelonephritis. Unlikely acute cholecystitis.] ??Differential Diagnoses (considered and unlikely, not requiring evaluation currently): [See above] MDM Data Please see [facility] for the following: Independent Historians and external Records Review. Historian: [Patient] Independent Historians: ?[Record review] Medication Management: [Reviewed medication list] Social History and determinants: [Reviewed] Please see the body of the note for the following: Any independent interpretations of ECG, imaging studies. All vitals signs/haemodynamics, ordered tests were independently reviewed and interpreted by myself. Nursing triage complaint and vitals reviewed, additional nursing notes were reviewed as available and I agree unless otherwise noted or documented in contradiction in the chart Vital Signs: Independently reviewed Labs: Independently interpreted Imaging: Independently interpreted Old Medical Records: Independently reviewed, see HPI for relevant summary and information Pulse Oximetry: [97%] interpreted as [normal on room air] by me [Pumper Helper: [Regular Rate, Regular rhythm, no ectopy, NSR] reviewed and interpreted by me] Additionally notably showing: [Hemodynamics reviewed. Not febrile, not tachycardic, no evidence of hypotension respiratory distress. CBC normal ESR is normal. Coagulation panel shows negative D-dimer. Unlikely t o be PE as a cause of his chest pain. Chemistry shows dehydration. Troponin is negative. CRP is negative. UA is nondiagnostic for UTI. CT head was obtained to evaluate for his disequilibrium. It shows no acute intracranial process. CT of the chest was obtained and it shows no acute disease.] Tests considered but not ordered include: [Not applicable] Social Determinants of Health Impact: Patient was evaluated in [facility], or [facility] [place] access to healthcare due to below par ratio of patient to medical providers. [] Comorbid Conditions Impacting Present Evaluation and Care/Treatment: [Smoking] Management Discussions with other Healthcare Providers: [None] Treatment and Disposition Medication Management (Given or considered): []. See EMR for details Consideration for Hospitalization/Escalation/Deescalation of Care: Admission for observation has been considered, [however the patient is able to tolerate p.o., their symptoms are controlled, they are able to rely on oral medications, and their chief complaint/diagnosis can be managed on outpatient basis.] ?ED Course:?[No clinical deterioration. No explanation for his right-sided flank pain. Could represent musculoskeletal disease.] ?Shared decision making:?[Patient is hemodynamically stable for discharge home with follow with their primary care provider. [ ] Specific and cautious return precautions provided and discussed with full understanding. Any incidental findings were also discussed and follow up recommendations given. [] All questions answered. Patient/family were able to verbalize back return precautions. Patient/family agree to plan. Copies of imaging and laboratory studies were provided.] Code status:?FULL Please see the full Electronic Medical Record for full details of nursing documentation, medications list, other records of complete past medical history and conditions, vital signs, laboratory studies, and any radiologic study interpretations by radiologists. Portions of this note were completed using [employer] dictation software and as a result there may exist minor errors in spelling. I have reviewed elements of past family and social history and agree as included in note. Departure Disposition: 01 HOME / SELF CARE / HOMELESS Impression: Primary Impression: Right flank pain Additional Impression: Right-sided chest wall pain Condition: Improved Discharge Instructions: Flank Pain, Adult Additional Instructions: There is no explanation for your flank and chest wall pain. Given location of the pain, it is nature, this potentially could represent arthritis of your joints connecting ribs to the spine and your breast bone. However there is no definitive test to confirm that. Treat her pain with nonsteroidal anti- inflammatory and muscle relaxants if it helps. Please follow-up with the primary care provider. Referrals: NO PRIMARY CARE PROVIDER (PCP) Prescriptions Cyclobenzaprine HCl (Cyclobenzaprine HCl) 5 Mg Tablet 1 TAB PO TID PRN PRN for muscle spasms for 10 Days, #30 TAB 0 Refills Prov: MARINO MARQUEZ DO 11/15/24 Naproxen (Naproxen) 500 Mg Tablet 1 TAB PO Q12H, #20 TAB Prov: MARINO MARQUEZ DO 11/15/24 Education Educated: Patient Educated regarding: diagnosis, treatment, prognosis, need for follow up Signature Scribe Signature: No scribe Attestation: This note accurately reflects clinical decisions, work performed by myself, DO ALMA Gonsalez NICHOLAS M DO Nov 15, 2024 00:37
--- NOTE | 2024-11-15 01:26 | RADIOLOGY REPORT ---
EXAM: CT CT HEAD INDICATION: New onset disequilibrium TECHNIQUE: CT of the head without intravenous contrast. Radiation Dose : 1. Head: CT Dose: CTDI volume is mGy. Dose-length product is mGy*cm The dose indicators for CT are the volume Computed Tomography (CT) Dose Index (CTDIvol) and the Dose Length Product (DLP), and are measured in units of mGy and mGy-cm, respectively. These indicators are not patient dose, but values generated from the CT scanner acquisition factors. The report includes radiation exposure data for exposures received during this examination. COMPARISON: CT CT FACIAL BONES/SOFT TISSUE on DOS: 07/14/24, CT CT HEAD on DOS: 06/19/24 FINDINGS: No evidence of intracranial hemorrhage, infarct, extra-axial collection, mass effect, midline shift or herniation. Ventricles, sulci and cisterns are normal with no hydrocephalus. Fisher-white differenti ation is normal. Visualized paranasal sinuses and mastoid air cells are clear. Orbits appear unremarkable. Soft tissue s and osseous structures are unremarkable. IMPRESSION: No intracranial abnormality identified. Radiation optimization: All CT scans at this facility use at least one of these dose optimization desiree hniques: automated exposure control mA and/or kV adjustment per patient size (includes targeted exam s where dose is matched to clinical indication) or iterative reconstruction.
[2024-11-15 01:29] LABS: MEAN PLATELET VOLUME 8.8 FL (7.4-10.4); RED CELL DISTRIBUTION WIDTH 13.3 % (11.5-14.5)
[2024-11-15 01:40] LABS: CREATININE 0.86 MG/DL (0.60-1.10); TOTAL CARBON DIOXIDE 30.5 MMOL/L (24-32); eCRCL 94 ML/MIN; eGFR > 90 ML/MIN
--- NOTE | 2024-11-15 01:44 | RADIOLOGY REPORT ---
CT Chest without intravenous contrast INDICATION: Right-sided pleuritic chest pain TECHNIQUE: Multidetector spiral CT of the chest was performed from the lung apices to the upper abdom en. Axial, coronal and sagittal multiplanar reformats were performed. Radiation Dose : 1. Chest: CTDI volume is mGy. Dose-length product is mGy*cm The dose indicators for CT are the volume Computed Tomography (CT) Dose Index (CTDIvol) and the Dose Length Product (DLP), and are measured in units of mGy and mGy-cm, respectively. These indicators are not patient dose, but values generated from the CT scanner acquisition factors. The report includes radiation exposure data for exposures received during this examination. Comparison: None Findings: Lower neck: Unremarkable. Lungs: No abnormality demonstrated. No pulmonary consolidation or edema. Pleura: No pleural effusion or pneumothorax. Heart/Vascular Structures: Normal heart size. No pericardial effusion. Unremarkable thoracic aorta. Lymph Nodes: No evidence of lymphadenopathy. Musculoskeletal: No osseous abnormality noted. Soft tissues: Unremarkable. Upper abdomen: Cholecystectomy. IMPRESSION: No abnormality demonstrated. Radiation optimization: All CT scans at this facility use at least one of these dose optimization desiree hniques: automated exposure control mA and/or kV adjustment per patient size (includes targeted exam s where dose is matched to clinical indication) or iterative reconstruction.
[2024-11-15 02:14] LABS: LEUKOCYTE ESTERASE ,URINE NEGATIVE (Neg); NITRITES, URINE NEGATIVE (Neg); OCCULT BLOOD,URINE NEGATIVE (Neg)
[2024-11-15 02:17] LABS: UA COLLECTION TYPE NON-SPECIFIED
[2024-11-15] MEDS: normal saline 1000ML IV soln IVB ONE (02:25)
[2024-11-15] MEDS: ketorolac trometh 30MG/ML vial 30 MG/ML VIAL IV ONE (02:27)
[2024-11-15] MEDS ORDERED: NAPR-56 PO (02:40)
[2024-11-15] MEDS ORDERED: CYCL-920 PO (02:40)
[2024-11-15 03:31] VITALS: BP 108/62; PULSE 64; RESP 16; O2SAT 99
== END 2024-11-15 03:33 | disposition home or self-care (01) ==
LOC: ER 00:28
DX: R10.84 Generalized abdominal pain (principal); R07.89 Other chest pain; E78.00 Pure hypercholesterolemia, unspecified; F41.9 Anxiety disorder, unspecified; I10 Essential (primary) hypertension; Z88.0 Allergy status to penicillin; Z79.899 Other long term (current) drug therapy
CPT/HCPCS: 36415; 70450; 71250; 80053; 81003; 82550; 83735; 84484; 85025; 85379; 85651; 86140; 96361; 96374; 99285; J1885; J7030

== ENCOUNTER 2024-11-27 07:54 | Emergency (ER) | payer MEDICAID ==
[~2024-11-27] VITALS: Ht 172.7 cm; Wt 78.2 kg
[~2024-11-27 07:54] MED LIST changes: +CYCL-920 PO; +NAPR-56 PO
[2024-11-27 08:00] VITALS: TEMP 98.4
--- NOTE | 2024-11-27 08:46 | Physician Documentation ---
History of Present Illness ~ Chief Complaint: Palpitations Stated Complaint: HEART PALPITATIONS Time Seen by MD: 08:22 Primary Medical Doctor: [facility] Source: patient (2) Mode of Arrival: Ambulatory HPI Patient comes in for evaluation of anxiety, palpitations. He has a history of anxiety for which he is followed by a psychiatrist and takes medication, and reports that he is slowly being weaned off of Xanax which he has taken since the . A review of the record shows that this is the patient's 11 visits visit this year alone, most visits are for anxiety and chest pain. In September his workup included thyroid testing, and negative troponins. He has a history of a myocardial perfusion study which was negative in 2022, and has cardiology follow-up in December. He tells me that over the last week or so he has felt bloated in the abdomen and had a stabbing pain in his umbilicus, but this comes and goes and is better after taking Gas-X today. He remarks also that he has had occasional palpitations, but this time they were worse and were present on awakening. He feels that the rhythm is not fast but rather irregular, and he has had intermittent bouts of palpitations lasting 20-30 seconds, which lasted about a half an hour but resolved by the time he got here. There was some perhaps mild dizziness with the palpitations, and he is feeling better now. He denies any new symptoms, no chest pain, shortness of breath, nausea, vomiting, diarrhea. Medication Reconciliation Allergies: Coded Allergies: Penicillins (Verified Allergy, Unknown, 11/27/24) Greater than five years ago as a kid, rash, did not require treatment. Scheduled Alprazolam* (Xanax*), 0.5 MG PO BID, (Reported) Azithromycin (Zithromax), 1 TAB PO UD Gemfibrozil (Gemfibrozil), 600 MG PO HS, (Reported) Naproxen (Naproxen), 1 TAB PO Q12H Prednisone* (Prednisone*), 1 TAB PO DAILY Sertraline Hcl (Zoloft), 100 MG PO DAILY, (Reported) Scheduled PRN Cyclobenzaprine HCl (Cyclobenzaprine HCl), 1 TAB PO TID PRN PRN for muscle spasms Past Medical History Past Medical History: High Cholesterol, Hypertension, Inflammatory Bowel Dz (UC), Anxiety Past Surgical History: noncontributory Smoking Status: Current every day smoker Alcohol Use: None Drug Use: none Lives with: Family Lives In: Home Occupation: employed Review of Systems All Other Systems at this time: Reviewed and Negative Physical Exam Vital Signs: Temperature: 98.4, Heart Rate: 69, Respiratory Rate: 15, BP: 110/65, Pulse Oximetry: 97, Weight: 78.250 Oxygen Flow Rate: 0 Physical Exam General: Pt is awake, alert, oriented x4 in no acute distress and well appearing, although anxious. Head: Normocephalic and atraumatic. Eyes: Conjunctiva normal. ENT: Mucous membranes moist. Neck: Supple. Chest: Clear to auscultation bilaterally, without rales, rhonchi, or wheezes. There is no accessory muscle use or retractions. Cardiac: Regular rate and rhythm without murmurs, gallops or rubs. Heart rate currently 69, in a normal sinus rhythm. Palpation of the chest wall is normal. Abd: Soft, nondistended, nontender, with normoactive bowel sounds. No guarding or rebound. Extremities: Within normal limits without cyanosis, clubbing, or edema. Skin: [place], warm and dry with no significant rash appreciated. Neuro: Cranial nerves II-XII grossly intact. The gait is normal. Progress Results/Orders Results/Orders Orders - SREEDHAR UMAÑA MD Monitor (11/27/24 08:46) Saline Lock (11/27/24 08:46) Completed Orders - SREEDHAR UMAÑA MD Cbc/Diff (11/27/24 08:46) Lipase (11/27/24 08:46) BMP (11/27/24 08:46) Hs Troponin I W Calculations (11/27/24 08:46) Hs Troponin I W Calculations (11/27/24 10:46) Vital Signs 11/27/24 11/27/24 11/27/24 11/27/24 08:00 08:11 08:14 09:02 Temp 98.4 Pulse 79 69 67 Resp 16 18 15 13 B/P (MAP) 117/69 110/65 (80) 121/76 (91) Pulse Ox 98 97 97 O2 Flow Rate 0 11/27/24 10:16 Pulse 68 Resp 21 B/P (MAP) 116/71 (86) Pulse Ox 96 Laboratory Tests Test 11/27/24 08:14 11/27/24 10:20 White Blood Count 6.2 Red Blood Count 5.01 Hemoglobin 15.0 Hematocrit 45.0 Mean Corpuscular Volume 89.8 Mean Corpuscular Hemoglobin 29.9 Mean Corpuscular Hemoglobin Concent 33.3 Red Cell Distribution Width 13.3 Platelet Count 268 Mean Platelet Volume 9.5 Neutrophils (%) (Auto) 64.9 Lymphocytes (%) (Auto) 20.9 L Monocytes (%) (Auto) 8.1 Eosinophils (%) (Auto) 5.4 Basophils (%) (Auto) 0.7 Neutrophils # (Auto) 4.0 Lymphocytes # (Auto) 1.3 Monocytes # (Auto) 0.5 Eosinophils # (Auto) 0.3 Basophils # (Auto) 0.0 CBC Comment Sodium Level 141 Potassium Level 4.4 Chloride Level 103 Carbon Dioxide Level 31.6 Anion Gap 6 L Blood Urea Nitrogen 23 H Creatinine 0.75 Estimated GFR/1.73 m2 > 90 BUN/Creatinine Ratio 30.7 H Glucose Level 119 H Calcium Level 9.7 Troponin I High Sensitivity 6 6 Albumin 4.2 Lipase 45 Chemistry Comments Troponin I High Sens Percent Delta 0 Troponin I Hi Sens Absolute Change 0 Re-Evaluation Re-Evaluation #1: Re-Evaluation Time: 08:46 Additional Comment Patient reports no palpitations since arrival in bed two, and no ectopy has been noted on his continuous ECG monitor Re-Evaluation #2: Re-Evaluation Time: 11:49 Additional Comment Patient is ready for discharge. He reports no palpitations during his emergency department stay, and no ectopy has been noted. EKG/XRAY/CT/US/VASC/MRI EKG : Indication: arrhythmia EKG Rate: 78 EKG: NSR EKG Blocks: none [place]: normal Hypertrophy: none Medical Decision Making Additional Information Patient presenting with symptoms of palpitations, and anxiety, symptoms that he has had previously, but was concerned because they lasted a little longer. He has had no symptoms throughout his extensive emergency department observation.. No significant electrolyte abnormalities, negative serial troponins, EKG showing a normal sinus rhythm with no evidence for ectopy. Patient has no new symptoms, no tachypnea, tachycardia, hypoxia, pleuritic chest pain to suggest pulmonary embolism. He does have follow-up with Cardiology, and I have advised that he discuss Holter monitoring with them, as he may have some arrhythmia that requires identification. He understands to return to the emergency department if he has any worsening or concerns, and will be discharged in stable condition. Departure Time of Disposition: 11:51 Disposition: 01 HOME / SELF CARE / HOMELESS Impression: Primary Impression: Palpitations Condition: Stable Discharge Instructions: Palpitations, [id number] Additional Instructions: No abnormal beats were noted during your hospital stay, electrolytes are reassuring, no evidence for cardiac ischemia/heart attack. It would be beneficial if your outpatient physical therapist assistant could arrange for an outpatient Holter monitor, which will help to identify any potential rhythm problems you might be having when you experience palpitations. Continue to work with your mental health professional on your anxiety medications. Return to the emergency department immediately if you should have significant chest pain, worsening palpitations or dizziness, or any other con cerns. Referrals: NO PRIMARY CARE PROVIDER (PCP) Education Educated: Patient Educated regarding: diagnosis, treatment Signature Scribe Signature: Attestation: SREEDHAR UMAÑA MD Nov 27, 2024 08:46
[2024-11-27 08:57] LABS: MEAN PLATELET VOLUME 9.5 FL (7.4-10.4); RED CELL DISTRIBUTION WIDTH 13.3 % (11.5-14.5)
[2024-11-27 08:59] LABS: CREATININE 0.75 MG/DL (0.60-1.10); TOTAL CARBON DIOXIDE 31.6 MMOL/L (24-32); eCRCL 108 ML/MIN; eGFR > 90 ML/MIN
[2024-11-27 10:16] VITALS: BP 116/71; PULSE 68; RESP 21; O2SAT 96
--- NOTE | 2024-11-27 17:45 | ELECTROCARDIOGRAPH REPORT ---
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
== END 2024-11-27 11:57 | disposition home or self-care (01) ==
LOC: ER 07:54
DX: R00.2 Palpitations (principal); F41.9 Anxiety disorder, unspecified; I10 Essential (primary) hypertension; F17.200 Nicotine dependence, unspecified, uncomplicated; E78.00 Pure hypercholesterolemia, unspecified; Z88.0 Allergy status to penicillin; Z79.899 Other long term (current) drug therapy
CPT/HCPCS: 36415; 80048; 83690; 84484; 85025; 93005; 99284

== ENCOUNTER 2024-11-28 22:11 | Emergency (ER) | payer MEDICAID ==
[~2024-11-28] VITALS: Ht 172.7 cm; Wt 79.5 kg
[2024-11-28 22:18] VITALS: BP 105/73; PULSE 83; RESP 20; O2SAT 97
--- NOTE | 2024-11-28 22:25 | Physician Documentation ---
History of Present Illness ~ Chief Complaint: Chest Pain Stated Complaint: CHEST PAIN Time Seen by MD: 22:22 Primary Medical Doctor: [facility] HPI This is a 54-year-old gentleman with a known history of smoking who presents for evaluation of substernal chest pain that has been present for the last several hours and is getting worse. The particular palliating or aggravating factors w ere elicited with the patient. Did not attempt to treat it. He states that it before the chest pain began he had experienced a right-sided headache with a brief episode of blurry vision in his right eye. He is scheduled for a stress test and an echo sometime next month, but has not ever had a cardiac workup in the past. Medication Reconciliation Allergies: Coded Allergies: Penicillins (Verified Allergy, Unknown, 11/27/24) Greater than five years ago as a kid, rash, did not require treatment. Scheduled Alprazolam* (Xanax*), 0.5 MG PO BID, (Reported) Azithromycin (Zithromax), 1 TAB PO UD Gemfibrozil (Gemfibrozil), 600 MG PO HS, (Reported) Naproxen (Naproxen), 1 TAB PO Q12H Prednisone* (Prednisone*), 1 TAB PO DAILY Sertraline Hcl (Zoloft), 100 MG PO DAILY, (Reported) Scheduled PRN Cyclobenzaprine HCl (Cyclobenzaprine HCl), 1 TAB PO TID PRN PRN for muscle spasms Past Medical History Past Medical History: High Cholesterol, Hypertension, Inflammatory Bowel Dz, Anxiety Past Surgical History: noncontributory Alcohol Use: None Drug Use: none Lives with: Family Lives In: Home Occupation: employed Review of Systems ROS 10 point review of systems was performed and unless noted above in HPI is ne gative for acute process/complaint. Physical Exam Vital Signs: Temperature: 97.0, Heart Rate: 83, Respiratory Rate: 20, BP: 105/73, Pulse Oximetry: 97, Weight: 79.500 Oxygen Flow Rate: 0 Physical Exam GENERAL: Awake, alert, oriented, GCS 15, no apparent distress, non-toxic appearing, answers questions, follows commands appropriately. Examined in triage HEENT: Atraumatic, normocephalic, pupils equal, extraocular muscles intact, sclerae anicteric, mucus membranes moist, oropharynx is clear, no stridor. NECK: supple, full active range of motion, trachea midline, no thyromegaly, no lymphadenopathy, no JVD. CARDIOVASCULAR: regular rate/rhythm, no murmurs/gallops/rubs, Pulses are 2+ in all extremities and symmetric. Capillary refill less than 2 seconds. PULMONARY: Nonlabored, good air movement ,no respiratory distress, speaking in full sentences, clear to auscultation bilaterally, no wheezing, no ronchi, no rales, no accessory muscle use. GASTROINTESTINAL: Soft, non-tender, non-distended, normal active bowel sounds, no organomegaly, no pulsatile masses, no CVA tenderness. NEUROLOGIC: Lucid with normal mental status. Normal facial symmetry. Moves all extremities symmetrically and with purpose. No truncal ataxia. Speech is fluid without evidence of dysarthria or aphasia, no focal deficits appreciated. MUSCULOSKELETAL: There is full range of motion of all extremities. There is no joint pain or joint swelling or joint erythema. There is no muscle pain or tenderness or swelling. EXTREMITIES: warm, well-perfused, no cyanosis, no clubbing, no edema, no acute deformities. Skin: warm, dry, no rashes or lesions, no jaundice, no petechiae orpurpura. No ecchymosis. PSYCHIATRIC: Normal affect, normal insight, normal concentration. Focused exam: [] Progress Results/Orders Results/Orders Orders - MARINO MARQUEZ DO Ct Head (11/28/24 22:22) Hs Troponin I W Calculations (11/29/24 00:22) Chest,Two Views (11/28/24 22:22) Completed Orders - MARINO MARQUEZ DO Electrocardiogram (11/28/24 22:22) Cbc/Diff (11/28/24 22:22) D-Dimer (11/28/24 22:22) Lipase (11/28/24 22:22) PBNP (11/28/24 22:22) MG (11/28/24 22:22) Ct Head (11/28/24 22:22) CMP (11/28/24 22:22) Hs Troponin I W Calculations (11/28/24 22:22) Chest,Two Views (11/28/24 22:22) Vital Signs 11/28/24 22:18 Temp 97.0 Pulse 83 Resp 20 B/P (MAP) 105/73 Pulse Ox 97 O2 Flow Rate 0 Laboratory Tests Test 11/28/24 22:42 White Blood Count 6.2 Red Blood Count 4.76 Hemoglobin 14.2 Hematocrit 42.0 Mean Corpuscular Volume 88.4 Mean Corpuscular Hemoglobin 29.9 Mean Corpuscular Hemoglobin Concent 33.8 Red Cell Distribution Width 13.2 Platelet Count 274 Mean Platelet Volume 8.6 Neutrophils (%) (Auto) 57.1 Lymphocytes (%) (Auto) 29.6 Monocytes (%) (Auto) 6.6 Eosinophils (%) (Auto) 5.8 Basophils (%) (Auto) 0.9 Neutrophils # (Auto) 3.5 Lymphocytes # (Auto) 1.8 Monocytes # (Auto) 0.4 Eosinophils # (Auto) 0.4 Basophils # (Auto) 0.1 CBC Comment D-Dimer < 0.19 D-Dimer Comment Sodium Level 140 Potassium Level 3.6 Chloride Level 106 Carbon Dioxide Level 25.4 Anion Gap 9 Blood Urea Nitrogen 32 H Creatinine 0.78 Estimated GFR/1.73 m2 > 90 BUN/Creatinine Ratio 41.0 H Glucose Level 101 Calcium Level 9.1 Magnesium Level 2.1 Total Bilirubin 0.3 Aspartate Amino Transf (AST/SGOT) 18 Alanine Aminotransferase (ALT/SGPT) 17 Alkaline Phosphatase 82 Troponin I High Sensitivity 5 Troponin I High Sens Percent Delta 16 Troponin I Hi Sens Absolute Change -1 Pro-B-Type Natriuretic Peptide 32 Total Protein 7.3 Albumin 3.9 Globulin 3.4 Albumin/Globulin Ratio 1.1 Lipase 44 Chemistry Comments EKG/XRAY/CT/US/VASC/MRI EKG : Additional Comment EKG was obtained and interpreted by myself showing sinus rhythm of 88, normal UT interval, narrow QRS, no QT prolongation, normal axis, no STEMI. Heart Score: Heart Score Response (Comments) Value History Slightly Suspicious 0 EKG Normal 0 Age 45-64 1 Risk Factors 1 or 2 risk factors 1 Troponin Normal limit 0 Total 2 Medical Decision Making Findings Facility Status: ED Holds, [facility] process The plan was discussed with the patient, who demonstrates clear understanding of the plan and is in agreement with the plan unless otherwise noted in the chart. All questions have been answered, all concerns were addressed unless otherwise documented. I was available throughout their ED stay for frequent reassessment and questions. Differential Diagnoses (considered and possible or likely): [Differential diagnosis considered includes chest wall pain, pleurisy, pneumonia, pulmonary embolus, GERD, esophagitis, gastritis, anxiety, stress reaction, costochondritis, acute coronary syndrome, aortic dissection, pericarditis, myocarditis, or pneumothorax.] ??Differential Diagnoses (considered and unlikely, not requiring evaluation currently): [Aortic/great vessels dissection was considered but it is unlikely based on absence of ripping, tearing, migratory chest pain, absence of syncope or focal neurologic deficits, physical examination indicating equal and sym metric pulses.] MDM Data Please see [facility] for the following: Independent Historians and external Records Review. Historian: [Patient] Independent Historians: ?[Record review] Medication Management: [Reviewed medication list] Social History and determinants: [Reviewed] Please see the body of the note for the following: Any independent interpretations of ECG, imaging studies. All vitals signs/haemodynamics, ordered tests were independently reviewed and interpreted by myself. Nursing triage complaint and vitals reviewed, additional nursing notes were reviewed as available and I agree unless otherwise noted or documented in contradiction in the chart Vital Signs: Independently reviewed Labs: Independently interpreted Imaging: Independently interpreted Old Medical Records: Independently reviewed, see [facility] for relevant summary and information Pulse Oximetry: [97%] interpreted as [normal on room air] by me [Poultry Inspector: [Regular Rate, Regular rhythm, no ectopy, NSR] reviewed and interpreted by me] Additionally notably showing: [Hemodynamically stable. Negative troponin. Normal lipase. Dehydrated. Chest x-ray is unremarkable. CT head shows no acute abnormality.] Tests considered but not ordered include: [Already has a scheduled stress test and echo.] Social Determinants of Health Impact: Patient was evaluated in [facility] [place] access to healthcare due to below par ratio of patient to medical providers. [] Comorbid Conditions Impacting Present Evaluation and Care/Treatment: [Smoking] Management Discussions with other Healthcare Providers: [None] Treatment and Disposition Medication Management (Given or considered): []. See EMR for details Consideration for Hospitalization/Escalation/Deescalation of Care: Admission for observation has been considered, [however the patient is able to tolerate p.o., their symptoms are controlled, they are able to rely on oral medications, and their chief complaint/diagnosis can be managed on outpatient basis.] ?ED Course:?[He is a low risk chest pain, heart score of two, however Admission for observation was offered. Desires to go home.] ?Shared decision making:?[Patient is hemodynamically stable for discharge home with follow with their primary care provider. [ ] Specific and cautious return precautions provided and discussed with full understanding. Any incidental findings were also discussed and follow up recommendations given. [] All questions answered. Patient/family were able to verbalize back return precautions. Patient/family agree to plan. Copies of imaging and laboratory trav dies were provided.] Code status:?FULL Please see the full Electronic Medical Record for full details of nursing documentation, medications list, other records of complete past medical history and conditions, vital signs, laboratory studies, and any radiologic study interpretations by radiologists. Portions of this note were completed using Rumble dictation software and as a result there may exist minor errors in spelling. I have reviewed elements of past family and social history and agree as included in note. Departure Impression: Primary Impression: Acute chest pain Condition: Improved Discharge Instructions: Nonspecific Chest Pain, Adult Referrals: NO PRIMARY CARE PROVIDER (PCP) Education Educated: Patient Educated regarding: diagnosis, treatment, prognosis, need for follow up Signature Scribe Signature: No scribe Attestation: Date: Nov 28, 2024 Time: 22:25 This note accurately reflects clinical decisions, work performed by myself, DO ALMA Gonsalez NICHOLAS M DO Nov 28, 2024 22:25
[2024-11-28 23:01] LABS: MEAN PLATELET VOLUME 8.6 FL (7.4-10.4); RED CELL DISTRIBUTION WIDTH 13.2 % (11.5-14.5)
--- NOTE | 2024-11-28 23:09 | ELECTROCARDIOGRAPH REPORT ---
[facility] Test Date: 2024-11-28 Test Time: 23:07:42 Pat Name: EMIL MADISON Department: EMERGENCY ROOM Room: Gender: M Podiatry Doctor: MANUEL : 1970 Requested By: MARINO MARQUEZ Order Number: [id number] Reading MD: Measurements Intervals [place] Rate: 88 P: 80 OR: 165 QRS: 78 QRSD: 95 T: 53 QT: 361 QTc: 437 Interpretive Statements Sinus rhythm Consider left atrial enlargement Minimal ST elevation, anterior leads Please click the below link to view image of tracing.
[2024-11-28 23:48] LABS: CREATININE 0.78 MG/DL (0.60-1.10); TOTAL CARBON DIOXIDE 25.4 MMOL/L (24-32); eCRCL 104 ML/MIN; eGFR > 90 ML/MIN
[2024-11-28 23:55] LABS: PRO BRAIN NATRIURETIC PEPTIDE 32 PG/ML (0-125)
--- NOTE | 2024-11-29 00:13 | RADIOLOGY REPORT ---
CHEST RADIOGRAPH Indication: Substernal chest pain Technique: 2 views Comparison: None FINDINGS: Lines and Tubes: None Lungs/Pleura: No focal consolidation, pleural effusion or pneumothorax. Cardiomediastinum: Unremarkable. Other: No acute osseous abnormality. IMPRESSION: 1. No acute cardiopulmonary abnormality.
--- NOTE | 2024-11-29 00:17 | RADIOLOGY REPORT ---
EXAM: CT CT HEAD INDICATION: Right-sided headache TECHNIQUE: CT of the head without intravenous contrast. Radiation Dose : 1. Head: CT Dose: CTDI volume is 61 mGy. Dose-length product is 11 19 mGy*cm The dose indicators for CT are the volume Computed Tomography (CT) Dose Index (CTDIvol) and the Dose Length Product (DLP), and are measured in units of mGy and mGy-cm, respectively. These indicators are not patient dose, but values generated from the CT scanner acquisition factors. The report includes radiation exposure data for exposures received during this examination. COMPARISON: CT CT HEAD on DOS: 11/15/24, CT CT HEAD on DOS: 06/19/24 FINDINGS: Brain: No acute hemorrhage, mass effect, or cerebral edema. CSF Spaces: Size and morphology within normal limits. Bones/Soft Tissues: No acute findings. Orbits/Sinuses/Mastoids: Unremarkable as visualized. IMPRESSION: 1. No acute intracranial abnormality. Radiation optimization: All CT scans at this facility use at least one of these dose optimization techniques: automated exposure control mA and/or kV adjustment per patient size (includes targeted exams where dose is matched to clinical indication) or iterative reconstruction.
[2024-11-29 00:55] VITALS: TEMP 97
== END 2024-11-29 01:00 | disposition home or self-care (01) ==
LOC: ER 22:12
DX: R07.89 Other chest pain (principal); R51.9 Headache, unspecified; R06.02 Shortness of breath; E78.00 Pure hypercholesterolemia, unspecified; I10 Essential (primary) hypertension; F41.9 Anxiety disorder, unspecified; Z87.891 Personal history of nicotine dependence; Z88.0 Allergy status to penicillin; Z88.8 Allergy status to other drugs, medicaments and biological substances
CPT/HCPCS: 36415; 70450; 71046; 80053; 83690; 83735; 83880; 84484; 85025; 85379; 93005; 99285

== ENCOUNTER 2024-12-11 17:59 | Emergency (ER) | payer MEDICAID ==
[~2024-12-11] VITALS: Ht 172.7 cm; Wt 80.0 kg
[2024-12-11 18:10] VITALS: BP 136/70; PULSE 105; RESP 16; O2SAT 95
--- NOTE | 2024-12-11 18:16 | ELECTROCARDIOGRAPH REPORT ---
[facility] Test Date: 2024-12-11 Test Time: 18:05:20 Pat Name: EMIL MADISON Department: EMERGENCY ROOM Room: Gender: M Authorization Rep: ROSMERY : 1970 Requested By: VI ALARCON Order Number: [id number] Reading MD: Measurements Intervals [place] Rate: 109 P: 77 ME: 155 QRS: 83 QRSD: 95 T: 5 QT: 332 QTc: 448 Interpretive Statements Sinus tachycardia Right atrial enlargement Please click the below link to view image of tracing.
[2024-12-11 18:34] LABS: MEAN PLATELET VOLUME 9.0 FL (7.4-10.4); RED CELL DISTRIBUTION WIDTH 13.3 % (11.5-14.5)
[2024-12-11 18:51] LABS: CREATININE 0.69 MG/DL (0.60-1.10); PRO BRAIN NATRIURETIC PEPTIDE 69 PG/ML (0-125); TOTAL CARBON DIOXIDE 26.6 MMOL/L (24-32); eCRCL 117 ML/MIN; eGFR > 90 ML/MIN
--- NOTE | 2024-12-11 18:51 | RADIOLOGY REPORT ---
CHEST RADIOGRAPH Indication: CP Technique: DI CHEST,SINGLE VIEW Comparison: None FINDINGS: The cardiac silhouette is unremarkable. The lungs demonstrate no pulmonary airspace consolidation. The pulmonary vasculature is unremarkable. There is no pleural effusion. There is no pneumothorax. IMPRESSION: No pulmonary airspace consolidation.
--- NOTE | 2024-12-11 19:15 | Physician Documentation ---
History of Present Illness ~ Chief Complaint: Chest Pain Stated Complaint: CP/DIZZINESS Time Seen by MD: 18:22 Primary Medical Doctor: GHULAM CONTRERAS 54-year-old male with a known history of anxiety and recurring episodes of chest discomfort presents to the emergency department for evaluation. Patient does continue to smoke nearly one pack a day. Reports about 02 14 today developed some chest tightness at circumferential was reproducible with deep breath. Additionally at that time felt nervous and had some belching along with diarrhea. He has pending echocardiogram and cardiology follow up. He has had similar reporting episodes in the past in the emergency department with negative cardiac workups. He has no shortness a breath at this time, no dyspnea on e xertion, pretibial edema, diaphoresis or pain at rest. Medication Reconciliation Allergies: Coded Allergies: Penicillins (Verified Allergy, Unknown, 12/11/24) Greater than five years ago as a kid, rash, did not require treatment. Scheduled Alprazolam* (Xanax*), 0.5 MG PO BID, (Reported) Azithromycin (Zithromax), 1 TAB PO UD Gemfibrozil (Gemfibrozil), 600 MG PO HS, (Reported) Naproxen (Naproxen), 1 TAB PO Q12H Prednisone* (Prednisone*), 1 TAB PO DAILY Sertraline Hcl (Zoloft), 100 MG PO DAILY, (Reported) Scheduled PRN Cyclobenzaprine HCl (Cyclobenzaprine HCl), 1 TAB PO TID PRN PRN for muscle spasms Past Medical History Past Medical History: High Cholesterol, Hypertension, Inflammatory Bowel Dz, Anxiety Past Surgical History: noncontributory Alcohol Use: None Drug Use: none Lives with: Family Lives In: Home Occupation: employed Physical Exam Vital Signs: Temperature: 97.6, Source: Oral, Heart Rate: 105, Respiratory Rate: 16, BP: 136/70, Pulse Oximetry: 95, Weight: 80.000 Oxygen Flow Rate: 0 Progress Results/Orders Results/Orders Vital Signs 12/11/24 18:10 Temp 97.6 Pulse 105 Resp 16 B/P (MAP) 136/70 Pulse Ox 95 O2 Flow Rate 0 Laboratory Tests Test 12/11/24 18:09 12/11/24 20:20 White Blood Count 6.1 Red Blood Count 5.17 Hemoglobin 15.7 Hematocrit 46.2 Mean Corpuscular Volume 89.3 Mean Corpuscular Hemoglobin 30.4 Mean Corpuscular Hemoglobin Concent 34.0 Red Cell Distribution Width 13.3 Platelet Count 287 Mean Platelet Volume 9.0 Neutrophils (%) (Auto) 62.2 Lymphocytes (%) (Auto) 25.4 Monocytes (%) (Auto) 6.6 Eosinophils (%) (Auto) 5.4 Basophils (%) (Auto) 0.4 Neutrophils # (Auto) 3.8 Lymphocytes # (Auto) 1.6 Monocytes # (Auto) 0.4 Eosinophils # (Auto) 0.3 Basophils # (Auto) 0.0 CBC Comment Sodium Level 143 Potassium Level 3.7 Chloride Level 107 Carbon Dioxide Level 26.6 Anion Gap 9 Blood Urea Nitrogen 16 Creatinine 0.69 Estimated GFR/1.73 m2 > 90 BUN/Creatinine Ratio 23.2 H Glucose Level 141 H Calcium Level 9.6 Troponin I High Sensitivity 4 4 Pro-B-Type Natriuretic Peptide 69 Albumin 4.0 Chemistry Comments Troponin I High Sens Percent Delta 0 Troponin I Hi Sens Absolute Change 0 Medical Decision Making Additional Information Examination history consistent with non cardiac chest pain. Labs are reassuring with repeated negative cardiac troponin enzymes & normal EKG. Likely patient's discomfort is triggered by anxiousness with little to no clinical suspicion for aortic dissection, acute coronary syndrome or pulmonary embolus. Can not overlook etiology such as reflux, gastritis, pleuritis or costochondritis. Examination history today it may also represent early acute gastroenteritis with the associated diarrhea. Diarrhea also may be a B symptoms associated with anxiousness. Patient is resting comfortably in the emergency department in is repeat examinations are reassuring. Discharged to continue with his outpatient follow up with Cardiology and primary care physician. No anxiolytics provided at discharge. Departure Disposition: HOME / SELF CARE / HOMELESS Impression: Primary Impression: Chest wall pain Additional Impression: Anxiousness Condition: Stable Discharge Instructions: Chest Wall Pain Additional Instructions: Today in the emergency department you had labs obtained an EKG which are both reassuring. You have had repeated exams while in the emergency department which again are reassuring. Please keep your scheduled follow up with the primary care physician and your scheduled echocardiogram. Thank you for visiting emergency department [facility] return as needed. Referrals: NO PRIMARY CARE PROVIDER (PCP) Education Educated: Patient Educated regarding: diagnosis, treatment, prognosis Signature Scribe Signature: . Attestation: . JOHN JOHNSON PAC Dec 11, 2024 19:15
[2024-12-11 21:14] VITALS: TEMP 97.6
== END 2024-12-11 21:18 | disposition home or self-care (01) ==
LOC: ER 18:00
DX: R07.89 Other chest pain (principal); F41.9 Anxiety disorder, unspecified; R06.02 Shortness of breath; E78.00 Pure hypercholesterolemia, unspecified; I10 Essential (primary) hypertension; F17.210 Nicotine dependence, cigarettes, uncomplicated; Z88.0 Allergy status to penicillin; Z88.8 Allergy status to other drugs, medicaments and biological substances
CPT/HCPCS: 36415; 71045; 80048; 83880; 84484; 85025; 93005; 99285

== ENCOUNTER 2025-01-06 12:30 | Outpatient (CLI) | payer MEDICAID ==
[~2025-01-06 12:30] MED LIST changes: -NAPR-56 PO
--- NOTE | 2025-01-06 13:50 | RADIOLOGY REPORT ---
EXAM: CT CT CHEST LOW DOSE INDICATION: NICOTINE DEPENDENCE, CIGARETTES TECHNIQUE: Low-dose noncontrast CT of the lungs have been obtained. All CT scans at this facility use dose modulation, iterative reconstruction, and/or weight based dosing when appropriate to reduce radiation dose to as low as reasonably achievable. COMPARISON: DI CHEST,SINGLE VIEW on DOS: 12/11/24 FINDINGS: LOWER NECK: Unremarkable LYMPH NODES/MEDIASTINUM: No abnormal lymph nodes by CT size criteria CARDIOVASCULAR: Normal cardiac size. No pericardial effusion. No aneurysmal dilatation of the great vessels. No significant coronary artery calcifications. UPPER ABDOMEN: Limited evaluation secondary to photon starvation. Cholecystectomy. MUSCULOSKELETAL: Multilevel degenerative change of the visualized spine. No acute fracture or aggressive focal osseous lesion. CHEST WALL: Unremarkable. LUNG/PLEURAL SPACE: No consolidation, suspicious focal airspace opacity, or suspicious nodules. No pleural effusion or pneumothorax. IMPRESSION: 1. No CT evidence of an acute intrathoracic process. LUNG-RADS: 1- Negative RECOMMENDATION: Annual low dose lung screening CT is recommended for 15 years after smoking cessation or until age 77. CITATION: Lung cancer screening categorization and recommendations per [employer] Lung-RADS Version 1.0 (http://www.acr.org/Quality- Safety/Resources/LungRADS).
== END 2025-01-06 23:59 | disposition home or self-care (01) ==
LOC: RAD 12:30
PROVIDERS: ATTEND Student in an Organized Health Care Education/Training Program
DX: Z12.2 Encounter for screening for malignant neoplasm of respiratory organs (principal); F17.210 Nicotine dependence, cigarettes, uncomplicated; M47.814 Spondylosis without myelopathy or radiculopathy, thoracic region
CPT/HCPCS: 71271

== ENCOUNTER 2025-02-08 12:12 | Emergency (ER) | payer MEDICAID ==
[~2025-02-08] VITALS: Ht 172.7 cm; Wt 83.1 kg
[2025-02-08 12:28] VITALS: BP 113/66; PULSE 72; RESP 18; TEMP 97.7; O2SAT 98
[2025-02-08] MEDS ORDERED: MECL-226 PO (12:40)
--- NOTE | 2025-02-08 12:40 | Physician Documentation ---
History of Present Illness ~ Chief Complaint: Ear Pain Stated Complaint: EAR INFECTION Time Seen by MD: 12:33 Primary Medical Doctor: [facility] HPI 54-year-old male who presents to the emergency department for evaluation of right ear fullness and discomfort when he yawns. Reports that his pain originates in his ear and behind his ear and travels down and lateral neck to the back of his throat. Denies prior history of the same. There has been no reported fever or other recent illness injury infection. Patient has not had any recent flights. Medication Reconciliation Allergies: Coded Allergies: Penicillins (Verified Allergy, Unknown, 02/08/25) Greater than five years ago as a kid, rash, did not require treatment. Scheduled Alprazolam* (Xanax*), 0.5 MG PO BID, (Reported) Azithromycin (Zithromax), 1 TAB PO UD Gemfibrozil (Gemfibrozil), 600 MG PO HS, (Reported) Prednisone* (Prednisone*), 1 TAB PO DAILY Sertraline Hcl (Zoloft), 100 MG PO DAILY, (Reported) Scheduled PRN Cyclobenzaprine HCl (Cyclobenzaprine HCl), 1 TAB PO TID PRN PRN for muscle spasms Meclizine HCl (Meclizine HCl), 1 TAB PO Q8H PRN for dizziness/vertigo Past Medical History Past Medical History: High Cholesterol, Hypertension, Inflammatory Bowel Dz, Anxiety Past Surgical History: noncontributory Alcohol Use: None Drug Use: none Lives with: Family Lives In: Home Occupation: employed Review of Systems All Other Systems at this time: Reviewed and Negative ENT: Reports: ear pain; Denies: ear ringing Physical Exam Vital Signs: RN Vital Signs have been reviewed: Yes, Temperature: 97.7, Source: Temporal, Heart Rate: 72, Respiratory Rate: 18, BP: 113/66, Pulse Oximetry: 98, Weight: 83.100 Oxygen Flow Rate: 0 General Appearance: alert, WD/WN, mild distress Eye Lid: normal inspection Conjunctiva: normal inspection Pupils/EOM/Fundus: PERRLA Ear: TM bulging (Right TM); No: TM obscured, TM perforated, bleeding, discharge, erythema, foreign body Nose: normal inspection Mouth/Throat: normal mouth inspection Teeth/Gums: normal inspection Face: normal inspection Neck: non-tender Respiratory: lungs clear Cardiovascular: normal peripheral pulses Skin: normal color Lymphatic: no adenopathy Neurologic: oriented x4 Psychiatric: normal mood/affect Progress Results/Orders Results/Orders Vital Signs 02/08/25 12:28 Temp 97.7 Pulse 72 Resp 18 B/P (MAP) 113/66 Pulse Ox 98 O2 Flow Rate 0 Medical Decision Making Additional information obtaine: N/A Findings Patients examination & history is consistent with Eustachian tube dysfunction and serous otitis without infection. Recommendations are to begin meclizine. Follow up with primary care for consideration of ENT if symptoms do not resolve. No clinical evidence of otitis media, otitis externa, mastoiditis, malignant otitis, [place], Swan's palsy, acoustic neuroma or temporal arteritis. Ear Diff. Dx: Considerations: Include: Abrasion, Cerumen impaction, Foreign body, Otitis externa, Barotrauma, Otitis media, Perforation, Referred pain- dental, Referred pain-pharyngitis, Referred pain-sinusitis, Referred pain-TMJ syn., Tympanic Membrane Injury, Other Eye Diff. Dx: Considerations: Include: Other (Noncontributory) Nose Diff. Dx: Considerations: Include: Other Tooth Diff. Dx: Considerations: Include: Other (Noncontributory) Throat Diff Dx: Considerations: Include: AIDS, Epiglottitis, Esophageal candidiasis, Hand foot mouth disease, Herpangina, Herpetic stomatitis, Herpes simplex, Infection mononucleosis, Immunodeficiency, Todd's angina, Peritonsillar abscess, Peritonsillar cellulitis, Pharyngitis-diphtheria, Pharyngitis-strepococcal, Pharyngitis-viral, Thrush, URI, Other Departure Disposition: 01 HOME / SELF CARE / HOMELESS Impression: Primary Impression: Eustachian tube dysfunction Qualified Codes: H69.91 - Unspecified eustachian tube disorder, right ear Additional Impression: Serous otitis media Qualified Codes: H65.04 - Acute serous otitis media, recurrent, right ear Discharge Instructions: Eustachian Tube Dysfunction Additional Instructions: Your examination today and history is consistent with serous otitis and eustachian tube dysfunction requiring antihistamine. Please make follow up appointment with your primary care physician for re-evaluation and consideration to ENT if not better. Thank you for visiting emergency department of [facility]. Referrals: NO PRIMARY CARE PROVIDER (PCP) Prescriptions Meclizine HCl (Meclizine HCl) 12.5 Mg Tablet 1 TAB PO Q8H PRN for dizziness/vertigo for 30 Days, #30 TAB Prov: JOHN JOHNSON 02/08/25 Education Educated: Patient Educated regarding: diagnosis, treatment, prognosis, need for follow up Signature Scribe Signature: . Attestation: . JOHN JOHNSON Feb 08, 2025 12:40
== END 2025-02-08 12:50 | disposition home or self-care (01) ==
LOC: ER 12:12
DX: H69.91 Unspecified Eustachian tube disorder, right ear (principal); H65.91 Unspecified nonsuppurative otitis media, right ear; E78.00 Pure hypercholesterolemia, unspecified; I10 Essential (primary) hypertension; F41.9 Anxiety disorder, unspecified; Z88.0 Allergy status to penicillin; Z79.899 Other long term (current) drug therapy
CPT/HCPCS: 99282

== ENCOUNTER 2025-02-18 20:32 | Emergency (ER) | payer MEDICAID ==
[~2025-02-18] VITALS: Ht 172.7 cm; Wt 81.8 kg
[~2025-02-18 20:32] MED LIST changes: +MECL-226 PO
[2025-02-18 20:43] VITALS: BP 122/76; PULSE 98; RESP 16; O2SAT 96
--- NOTE | 2025-02-18 23:20 | ELECTROCARDIOGRAPH REPORT ---
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 CHELSI Duval Measurements Intervals [place] Rate: 78 P: 77 DC: 164 QRS: 72 QRSD: 93 T: 59 QT: 373 QTc: 425 Interpretive Statements Sinus rhythm Electronically Signed On 02-19-2025 16:53:[address] CHELSI Duval Please click the below link to view image of tracing.
--- NOTE | 2025-02-18 23:45 | Physician Documentation ---
History of Present Illness ~ Chief Complaint: Rib pain Stated Complaint: RIB PAIN Time Seen by MD: 22:45 Primary Medical Doctor: [facility] HPI This is a 54-year-old male who presents with four days of right chest wall pain described as "sharp" though patient is vague on details of aggravating and relieving factors and of persistence and reports vague radiation to other portions of his chest, patient vaguely reports the pain intermittently becomes worse with deep breathing causing him to feel short of breath. Patient reports no cough, fever, or other symptoms and reports no nausea or diaphoresis associated with the chest wall pain. Patient reports he is attempting to stop smoking and reports no cardiac history. Further questioning patient reports he has been experiencing some swelling and generalized tenderness to his entire left leg for approximately one month. Tetanus within 5 Years?: No Allergies: Coded Allergies: Penicillins (Verified Allergy, Unknown, 02/18/25) Greater than five years ago as a kid, rash, did not require treatment. Active Prescriptions See Medication Reconciliation Form. Medication Reconciliation Scheduled Alprazolam* (Xanax*), 0.5 MG PO BID, (Reported) Azithromycin (Zithromax), 1 TAB PO UD Gemfibrozil (Gemfibrozil), 600 MG PO HS, (Reported) Prednisone* (Prednisone*), 1 TAB PO DAILY Sertraline Hcl (Zoloft), 100 MG PO DAILY, (Reported) Scheduled PRN Cyclobenzaprine HCl (Cyclobenzaprine HCl), 1 TAB PO TID PRN PRN for muscle spasms Meclizine HCl (Meclizine HCl), 1 TAB PO Q8H PRN for dizziness/vertigo Past Medical History Past Medical History: High Cholesterol, Hypertension, Inflammatory Bowel Dz, Anxiety Past Surgical History: noncontributory Alcohol Use: None Drug Use: none Lives with: Family Lives In: Home Occupation: employed Review of Systems ROS As stated above in the HPI, otherwise all systems are reviewed and negative. Physical Exam Vital Signs: Temperature: 97.6, Source: Temporal, Heart Rate: 98, Respiratory Rate: 16, BP: 122/76, Pulse Oximetry: 96, Weight: 81.800 Physical Exam VITALS: Reviewed and as above. GENERAL: Alert, nontoxic appearing, no apparent distress. RESPIRATORY: No increased work of breathing, no respiratory distress, speaking in full clear sentences, clear lung sounds in all [place] CHEST: No tenderness to palpation of chest wall, no flail chest, no crepitus CV: Regular rate and rhythm no murmur. No pitting edema to lower extremities MUSCULOSKELETAL: Left calf slightly swollen as compared to right calf, no focal tenderness to left lower extremity, vague generalized tenderness to left lower extremity SKIN: This is for erythema to lower extremities Progress Results/Orders Results/Orders Orders - CAMILLA GARCIA PANTS BUSHELER Chest,Single View (02/18/25 22:51) Vl Venous (02/19/25 22:51) Completed Orders - CAMILLA GARCIA PANTS [employer]HELER Chest,Single View (02/18/25 22:51) Electrocardiogram (02/18/25 22:51) Hs Troponin I W Calculations (02/18/25 22:51) Vl Venous (02/19/25 22:51) Vital Signs 02/18/25 02/19/25 20:43 01:56 Temp 97.6 97.6 Pulse 98 Resp 16 B/P (MAP) 122/76 Pulse Ox 96 Laboratory Tests Test 02/18/25 23:08 Troponin I High Sensitivity 4 EKG/XRAY/CT/US/VASC/MRI EKG : Additional Comment EKG at 2318 interpreted by myself as: Normal sinus rhythm at a rate of 78, normal axis, no ST segment elevation or depression. Chest X-Ray : Additional Comments Exam: CHEST,SINGLE VIEW CLINICAL HISTORY: CP TECHNIQUE: AP view of the chest was obtained. WID: COMPARISON: CT CT CHEST LOW DOSE on DOS: 01/06/25, DI CHEST,SINGLE VIEW on DOS: 12/11/24, DI CHEST,TWO VIEWS on DOS: 11/28/24, CT CT CHEST on DOS: 11/15/24, DI CHEST,SINGLE VIEW on DOS: 11/09/24 FINDINGS: Lungs: clear Cardiomediastinal silhouette: normal in size Bones: No acute osseous abnormality. Imaged Upper Abdomen: unremarkable. IMPRESSION: NO ACUTE CARDIOPULMONARY PROCESS. Electronically Signed by:WADE WILLS MD Date & Time: 02/18/252344 Dictated by: WADE WILLS MD Dictation date and time: 02/18/252344 I have reviewed and agree with the radiology report. I have reviewed and interpreted the imaging as: No focal consolidation, no pneumothorax, no displaced rib fractures Vascular : Impression Exam Name: VENOUS Technologist: Left lower extremity venous duplex Clinical History: Left calf swelling Comparison: None Technique: Duplex Doppler evaluation of the deep venous system of the left lower extremity from the common femoral vein to the popliteal vein including color Doppler and spectral/pulsed waveform analysis was performed. Findings: The common femoral vein demonstrates appropriate compressibility and waveform variability. There is compressibility/patency of the great saphenous vein at the proximal thigh. The femoral vein demonstrates appropriate compressibility and waveform variability. The deep femoral vein demonstrates appropriate compressibility and waveform variability. The popliteal vein demonstrates appropriate compressibility and waveform variability. There is normal compressibility at the tibioperoneal trunk. Impression: 1. No left femoropopliteal venous thrombosis. 2. Contralateral common femoral vein is patent. Dictated by:YAW ROSSI MD Dictation date and time:02/19/25210 Electronically Signed by: YAW ROSSI MD Date and Time: 02/19/25210 Transcribed: [facility] Medical Decision Making Additional information obtaine: old records Findings This is a 54-year-old male presented with four days of sharp left-sided chest wall pain though was vague about the details as it was unable to fully articulate aggravating or relieving factors and radiation or tenderness to palpation, of concern patient reported a feeling of vague intermittent shortness of breath in conjunction with the pain and one-month of lower left extremity swelling with tenderness therefore EKG, chest x-ray, troponin, and vascular ultrasound ordered to assess for NM, PE, and DVT. Given ultrasound findings of no DVT, lack of tachycardia on EKG, no hypoxia, and lack of report of persistent shortness of breath have low suspicion for pulmonary embolism. Wells score of 0 It was reassuring EKG was without abnormality and troponin was not elevated to suggest NM. Heart score of two given patient's age and risk factor of smoking. Patient is hemodynamically staple and otherwise well-appearing, I suspect chest wall pain of unclear origin, patient is appropriate for outpatient follow up. Patient provided home care instructions return to care precautions, and follow up instructions which he verbalized understanding of. Differential Dx:Considerations: Include: Chest wall contusion, Flail chest, Myocardial contusion, Pneumothorax, Pulmonary contusion, Rib fracture, Renal contusion, Splenic fracture, Tension pneumothorax Departure Time of Disposition: 01:49 Disposition: 01 HOME / SELF CARE / HOMELESS Impression: Primary Impression: Chest wall pain Additional Impression: Lower extremity edema Condition: Improved Discharge Instructions: Chest Wall Pain, [id number], Peripheral Edema Additional Instructions: There was no clear cause for the chest wall pain, though the remainder of your exam was reassuring. Use ibuprofen and or Tylenol as needed for chest wall pain. Please follow up with your primary care provider promptly for evaluation of the swelling to your leg, though it is no clear cause for the swelling. Please follow up with your primary care provider in the next few days. Please return to the emergency department for any new or worsening concerning symptoms. Referrals: NO PRIMARY CARE PROVIDER (PCP) Education Educated: Patient Educated regarding: diagnosis, treatment, prognosis, need for follow up Signature Scribe Signature: No scribe Attestation: The note accurately reflects work and decisions made by me.LUIS DANIEL Mena 02/19/25 01:50 CAMILLA GARCIA Feb 18, 2025 23:45
[2025-02-19 01:56] VITALS: TEMP 97.6
--- NOTE | 2025-02-19 02:13 | VASCULAR REPORT ---
Left lower extremity venous duplex Clinical History: Left calf swelling Comparison: None Technique: Duplex Doppler evaluation of the deep venous system of the left lower extremity from the common femoral vein to the popliteal vein including color Doppler and spectral/pulsed waveform analysis was performed. Findings: The common femoral vein demonstrates appropriate compressibility and waveform variability. There is compressibility/patency of the great saphenous vein at the proximal thigh. The femoral vein demonstrates appropriate compressibility and waveform variability. The deep femoral vein demonstrates appropriate compressibility and waveform variability. The popliteal vein demonstrates appropriate compressibility and waveform variability. There is normal compressibility at the tibioperoneal trunk. Impression: 1. No left femoropopliteal venous thrombosis. 2. Contralateral common femoral vein is patent.
== END 2025-02-19 02:08 | disposition home or self-care (01) ==
LOC: ER 20:33
DX: R07.89 Other chest pain (principal); R60.0 Localized edema; E78.00 Pure hypercholesterolemia, unspecified; I10 Essential (primary) hypertension; F41.9 Anxiety disorder, unspecified; Z88.0 Allergy status to penicillin; Z79.899 Other long term (current) drug therapy; Z79.52 Long term (current) use of systemic steroids
CPT/HCPCS: 36415; 71045; 84484; 93005; 93971; 99285

== ENCOUNTER 2025-02-24 15:56 | Emergency (ER) | payer MEDICAID ==
[~2025-02-24] VITALS: Ht 172.7 cm; Wt 81.8 kg
[2025-02-24 16:00] VITALS: BP 124/81; PULSE 89; RESP 16; O2SAT 97
--- NOTE | 2025-02-24 16:15 | Physician Documentation ---
History of Present Illness ~ Chief Complaint: Jaw Pain Stated Complaint: JAW PAIN Time Seen by MD: 16:03 Primary Medical Doctor: GHULAM HPI 4-year-old male patient presents to the ED with a complaint of right jaw pain with the pain radiating down the right side of his neck. States he feels like there is a inflamed bump on the right side of his neck. He has any fevers states he does have a history of surgery on the bottom right side of his mouth. He has a crown placed and noticed inflamed tissue on the bottom right molar region. Additionally he is complaining of a rash on the upper left torso region which is burning in nature this started three days ago Day of Onset: Feb 24, 2025 Tetanus Within 5 Years: No Medication Reconciliation Allergies: Coded Allergies: Penicillins (Verified Allergy, Unknown, 02/18/25) Greater than five years ago as a kid, rash, did not require treatment. Scheduled Acyclovir* (Zovirax*), 1 TAB PO 5XD Alprazolam* (Xanax*), 0.5 MG PO BID, (Reported) Amoxicillin Trihydrate* (Amoxicillin*), 1 CAP PO Q8H Azithromycin (Zithromax), 1 TAB PO UD Gemfibrozil (Gemfibrozil), 600 MG PO HS, (Reported) Prednisone* (Prednisone*), 1 TAB PO DAILY Sertraline Hcl (Zoloft), 100 MG PO DAILY, (Reported) Scheduled PRN Cyclobenzaprine HCl (Cyclobenzaprine HCl), 1 TAB PO TID PRN PRN for muscle spasms Meclizine HCl (Meclizine HCl), 1 TAB PO Q8H PRN for dizziness/vertigo Past Medical History Past Medical History: High Cholesterol, Hypertension, Inflammatory Bowel Dz, Anxiety Past Surgical History: noncontributory Alcohol Use: None Drug Use: none Lives with: Family Lives In: Home Occupation: employed Review of Systems All Other Systems at this time: Reviewed and Negative ROS As stated above in the HPI, otherwise all systems are reviewed and negative. Physical Exam Vital Signs: Heart Rate: 89, Respiratory Rate: 16, BP: 124/81, Pulse Oximetry: 97, Weight: 81.820 Oxygen Flow Rate: 0 Physical Exam General: Alert, no apparent distress. Neck: Full range of motion. Lymphadenopathy in the cervical chain right side Respiratory: Lungs clear, no respiratory distress. Cardiovascular: Regular rate and rhythm, no murmurs. Gastrointestinal: Soft, nontender, nondistended. Bowels sounds present. Extremities: Normal range of motion, no deformity. Neurologic: Oriented x4. Psychiatric: Normal mood and affect. Skin: Rash on the upper left thoracic region with developing blisters Progress Results/Orders Results/Orders Vital Signs 02/24/25 16:00 Pulse 89 Resp 16 B/P (MAP) 124/81 Pulse Ox 97 O2 Flow Rate 0 Medical Decision Making Additional information obtaine: old records Findings Going to treat this patient for both a developing tooth infection and shingles based on his unilateral rash that has burning in nature in the upper left thoracic region Differential Dx:Considerations: Include: Abrasion, Contusion, Cerebral contusion, Cervical spine injury, Closed head injury, Encephalopathy, Foreign body, Fracture, facial, Intoxication-alcohol, Intoxication-other drug, Laceration, Other Departure Disposition: 01 HOME / SELF CARE / HOMELESS Impression: Primary Impression: Jaw pain Additional Impressions: Dental abscess Shingles Condition: Stable Discharge Instructions: Dental Abscess Additional Instructions: Suspect that you have a developing tooth infection on the right side. After the infection has resolved I recommend following up with the your dentist in addition I suspect that she had developed shingles make sure to take all the medication prescribed. Referrals: NO PRIMARY CARE PROVIDER (PCP) Prescriptions Azithromycin (Azithromycin) 250 Mg Tablet 1 TAB PO UD for 5 Days, #6 TAB 2 the first day followed by 1 for days 2-5 Prov: DWIGHT LONDONO NP 02/24/25 Acyclovir* (Zovirax*) 800 Mg Tablet 1 TAB PO 5XD for 7 Days, #35 TAB Prov: DWIGHT LONDONO NP 02/24/25 Amoxicillin Trihydrate* (Amoxicillin*) 500 Mg Capsule 1 CAP PO Q8H for 10 Days, #30 CAP Prov: DWIGHT LONDONO NP 02/24/25 Signature Scribe Signature: d Attestation: Scribed for Dwight Londono Np by Dwight Oliver NP . 02/24/25 16:28 DWIGHT LONDONO NP Feb 24, 2025 16:15
[2025-02-24] MEDS ORDERED: AMOX500C2 PO (16:17)
[2025-02-24] MEDS ORDERED: ACYC-129 PO (16:17)
[2025-02-24] MEDS ORDERED: AZIT250T81 PO (16:28)
== END 2025-02-24 16:40 | disposition home or self-care (01) ==
LOC: ER 15:56
DX: K04.7 Periapical abscess without sinus (principal); B02.9 Zoster without complications; F41.9 Anxiety disorder, unspecified; I10 Essential (primary) hypertension; E78.00 Pure hypercholesterolemia, unspecified; Z88.0 Allergy status to penicillin; Z79.899 Other long term (current) drug therapy
CPT/HCPCS: 99283

== ENCOUNTER 2025-03-12 21:03 | Emergency (ER) | payer MEDICAID ==
[~2025-03-12] VITALS: Ht 175.3 cm; Wt 66.0 kg
[2025-03-12 21:06] VITALS: BP 146/83; PULSE 106; RESP 18; O2SAT 96
--- NOTE | 2025-03-12 21:20 | ELECTROCARDIOGRAPH REPORT ---
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 Bridget Cartagena Measurements Intervals [place] Rate: 104 P: 48 VA: 167 QRS: 64 QRSD: 96 T: 2 QT: 339 QTc: 446 Interpretive Statements Sinus tachycardia Probable left atrial enlargement RSR' in V1 or V2, probably normal variant Probable anteroseptal infarct, old Electronically Signed On 03-12-2025 22:07:[address] Bridget Cartagena Please click the below link to view image of tracing.
--- NOTE | 2025-03-12 22:53 | Physician Documentation ---
History of Present Illness ~ General Chief Complaint: Multiple Medical Complaints Stated Complaint: HEADACHE Time Seen by MD: 22:35 OK to notify your PCP?: Yes [facility] Mode of Arrival: POV Exam Limitations: no limitations History of Present Illness Initial Comments Reports that he recently had shingles but has finished his treatment course. He feels like at times that he has palpitations and he does have some your increased heart rate when standing up quickly. He reports that sometimes he can feel short of breath as well as he is still smoking cigarettes but trying to quit. He reports that he does have some tingling and pain to his bilateral hands and wrists 1st thing in the morning. He acknowledges that he likely has carpal tunnel syndrome but has not had official testing done. He reports having decreased energy and fatigue throughout the day and has less motivation to complete tasks. History of anxiety and reports that he is feeling more anxious than normal. Denies any HI or SI Medication Reconciliation Allergies: Coded Allergies: Penicillins (Verified Allergy, Unknown, 02/18/25) Greater than five years ago as a kid, rash, did not require treatment. Scheduled Alprazolam* (Xanax*), 0.5 MG PO BID, (Reported) Azithromycin (Zithromax), 1 TAB PO UD Gemfibrozil (Gemfibrozil), 600 MG PO HS, (Reported) Prednisone* (Prednisone*), 1 TAB PO DAILY Sertraline Hcl (Zoloft), 100 MG PO DAILY, (Reported) Scheduled PRN Cyclobenzaprine HCl (Cyclobenzaprine HCl), 1 TAB PO TID PRN PRN for muscle spasms Meclizine HCl (Meclizine HCl), 1 TAB PO Q8H PRN for dizziness/vertigo Discontinued Medications Amoxicillin Trihydrate* (Amoxicillin*), 1 CAP PO Q8H Discontinued Reason: Auto Discontinued Past Medical History Past Medical History: High Cholesterol, Hypertension, Inflammatory Bowel Dz, A nxiety Past Surgical History: noncontributory Alcohol Use: None Drug Use: none Lives with: Family Lives In: Home Occupation: employed Review of Systems All Other Systems at this time: Reviewed and Negative Physical Exam Physical Exam Vital Signs: RN Vital Signs have been reviewed: Yes, Temperature: 97.5, Heart Rate: 106, Respiratory Rate: 18, BP: 146/83, Pulse Oximetry: 96, Weight: 66.000 Oxygen Flow Rate: 0 Pulse Oximetry Reflects: adequate oxygenation Physical Exam General: Alert, no apparent distress. HEENT: PERRL, EOMI, no injection, moist mucous membranes. Neck: Full range of motion. Respiratory: Lungs clear, no respiratory distress. Chest: No accessory muscle use. Cardiovascular: Regular rate and rhythm, no murmurs. Gastrointestinal: Soft, nontender, nondistended. Bowels sounds present. Extremities: Normal range of motion, no deformity. Neurologic: Oriented x4. Psychiatric: Normal mood and affect. Skin: Normal color, warm and dry. No edema, no ecchymosis. Progress Results/Orders Results/Orders Vital Signs 03/12/25 03/12/25 21:06 22:54 Temp 97.5 97.5 Pulse 106 Resp 18 B/P (MAP) 146/83 Pulse Ox 96 O2 Flow Rate 0 Medical Decision Making Additional information obtaine: old records Findings He has multiple medical complaints. He is worried about his palpitations of increased heart rate when standing up quickly and sometimes he does get lightheaded with standing up quickly. We discussed adequate hydration pattern and he admits that he is likely dehydrated and does not drink enough water. He is not taking any extra electrolyte packets but it has purchase some tonight and plans on having them with his water. He reports that he has arthritis and carpal tunnel in his arms but isn't sure how to treat the symptoms, so I advised Tylenol, ibuprofen or Voltaren gel. He reports having increased daytime fatigue and lack of motivation to complete tasks because he feels fatigued, we discussed having his PCP check vitamin-B 12 and vitamin-D levels but in the meantime to start taking supplements for both of these. We briefly discussed testosterone levels as low testosterone can cause some of the same symptoms. He reports that he previously was told he had very low testosterone and underwent injections twice a month but there was no improvement in his testosterone levels. He has previously had cardiac workups which were normal. Today his EKG is reassuring, vital signs are stable and physical exam is unremarkable. Differential Diagnosis Vasovagal syncope, dehydration, DE, CVA, SVT. Departure Disposition: HOME / SELF CARE / HOMELESS Impression: Primary Impression: Arthritis Additional Impressions: Fatigue Dehydration Condition: Stable Additional Instructions: Increase water intake and use electrolyte packets at least once a day. Please work to stop smoking as this can exacerbate your symptoms. For the increased fatigue and low daytime energy, please start taking the vitamin D3 supplement as well as vitamin B 12 daily. Follow up with her regular doctor to have these levels checked. For the bilateral hand and elbow pain when you wake up in the morning, you can use the Voltaren or diclofenac gel up to 3 times a day to help with pain and swelling. You can use Tylenol, ibuprofen or naproxen for pain relief as well. Referrals: NO PRIMARY CARE PROVIDER (PCP) Education Educated: Patient Educated regarding: diagnosis, treatment, prognosis, need for follow up Additional Comment Medical Screen Exam This patient recieved a medical screening examination. After reviewing the individual's medical complaints with presenting symptoms and performing an appropriate physical examination, it was determined that no immediate life- threatening emergency medical condition is present. This individual is also not a women having contractions. Signature Scribe Signature: . Attestation: Scribed for Payton Abrahamp by Payton Oliver NP . 03/13/25 00:12 Parts of this note were created using [employer] voice recognition software program. While efforts were made to correct any mistakes made by this voice rec ognition software program, nonsensical phrases may remain in this note. In addition, there may be errors and syntax, grammar, content and spelling. PAYTON ABRAHAM [employer] Mar 12, 2025 22:53
[2025-03-12 22:54] VITALS: TEMP 97.5
== END 2025-03-12 22:59 | disposition home or self-care (01) ==
LOC: ER 21:04
DX: M19.90 Unspecified osteoarthritis, unspecified site (principal); E86.0 Dehydration; R53.83 Other fatigue; E78.00 Pure hypercholesterolemia, unspecified; F41.9 Anxiety disorder, unspecified; F17.210 Nicotine dependence, cigarettes, uncomplicated; I10 Essential (primary) hypertension; Z88.0 Allergy status to penicillin; Z79.899 Other long term (current) drug therapy
CPT/HCPCS: 93005; 99283